=== PATIENT | male | born 1935 | race Caucasian/White ===

== ENCOUNTER → 2016-06-05 | Outpatient (CLI) | payer OTHER ==
[~2016-06-05] MED LIST: AMLO-114 PO; ASPI81TA21 PO; ATEN-173 PO; CHOL2000 PO; DOCU-94 PO; IPRA1AER2 INH; IPRASOL4 INH; LACT10SO17 PO; LCTX PO; POLY335019 PO; SIMV10TA2 PO; SYMIN/8045 INH; WARF3TAB PO; WARF4TAB PO
[2016-06-05 16:02] LABS: BASO % 0.3 %; BASO ABS # 0.02 K/uL (0-0.2); COMPLETE YES; EOS % 2.6 %; HEMATOCRIT 45.4 % (42-52); IG% 0.3 %; LYMPH % 20.4 %; LYMPH ABS # 1.62 K/uL (1.2-3.4); MEAN CELL VOLUME 90.8 fL (80-100); MEAN PLATELET VOLUME 10.7 fL (7.4-10.4); NEUT % 69.4 %; PLATELET COUNT 204 K/uL (130-400); WHITE BLOOD COUNT 7.95 K/uL (4.8-10.8)
[2016-06-05 16:29] LABS: ALT/SGPT 25 U/L (12-78); BLOOD UREA NITROGEN 23 mg/dl (7-18); BUN/CREATININE RATIO 20.6 (10-20); CALCIUM 9.1 mg/dl (8.5-10.1); CARBON DIOXIDE 27 mmol/L (21-32); CHLORIDE 109 mmol/L (98-107); CHOLESTEROL 165 mg/dl (0-200); GLUCOSE 68 mg/dl (70-99); POTASSIUM 4.3 mmol/L (3.5-5.1); SODIUM 144 mmol/L (136-145)
[2016-06-05 16:33] LABS: ALKALINE PHOSPHATASE 81 U/L (45-117); AST/SGOT 26 U/L (15-37); CHOLESTEROL/HDL RATIO 2.8; HDL CHOLESTEROL 60 mg/dl; LDL CHOLESTEROL CALCULATED 81 mg/dl; TRIGLYCERIDES 120 mg/dl (0-150); VERY LOW DENSITY LIPOPROT CALC 24 mg/dl
--- NOTE | 2016-06-09 11:18 | CODING QUERY MEDICAL NECESSITY ---
SUPPORTING DIAGNOSIS NEEDED A supporting diagnosis is required for the test/procedure performed on this patient in order for us to be reimbursed by the patient's insurance. Please provide a supporting diagnosis for the following test/procedure listed below next to the test name along with your signature. *If there is no additional diagnosis for this patient that would support the following test/procedure please document that below next to the test/procedure. Test(s)/Procedure(s) that require a supporting diagnosis: * PSA DIAGNOSIS: * DOS: 06/05/16 Provider Signature: Date: Thank you Tatiana Nguyen [facility] [employer] Once completed, please kindly fax back to [phone] For questions please call [phone]
== END | disposition home or self-care (01) ==
LOC: C.LAB 15:02
PROVIDERS: ATTEND Internal Medicine
DX: K11.20 Sialoadenitis, unspecified (principal); R97.20 Elevated prostate specific antigen [PSA]

== ENCOUNTER → 2017-02-13 | Outpatient (CLI) | payer OTHER ==
[2017-02-13 12:32] LABS: BLOOD UREA NITROGEN 18 mg/dl (7-18); BUN/CREATININE RATIO 14.9 (10-20)
== END | disposition home or self-care (01) ==
LOC: C.LAB 09:51
PROVIDERS: ATTEND Urology
DX: N40.1 Benign prostatic hyperplasia with lower urinary tract symptoms (principal); R97.20 Elevated prostate specific antigen [PSA]

== ENCOUNTER → 2017-07-12 | Outpatient (CLI) | payer OTHER ==
--- NOTE | 2017-07-12 16:06 | DIAGNOSTIC IMAGING REPORT ---
ABDOMEN 2VIEW W/PA CHEST RTN CLINICAL HISTORY: K59.09 Chronic padiloaxfhcoR90.5 Low back pain, [id number] pain COMPARISON STUDY: 02/11/2016 FINDINGS: Moderate emphysematous change. Prior median sternotomy. No focal infiltrate. Abdomen demonstrates a nonobstructive bowel pattern. Mild degenerative change of the hips as well as lumbar spine. No secondary evidence for free air. IMPRESSION: 1. No acute process of the chest and abdomen. 2. Mild emphysematous change. The above report was generated using voice recognition software. It may contain grammatical, syntax or spelling errors. Electronically signed by: Darian Fernandez M.D. 07/12/2017 4:05 PM Dictated Date/Time: 07/12/2017 4:04 PM
== END | disposition home or self-care (01) ==
LOC: C.RADBC 15:29
PROVIDERS: ATTEND Registered Nurse
DX: K59.09 Other constipation (principal); M54.5 Low back pain

== ENCOUNTER → 2017-12-25 | Outpatient (CLI) | payer OTHER ==
[~2017-12-25] MED LIST changes: -AMLO-114 PO; +AMLO10TA3 PO; +ASPI-319 PO; -ASPI81TA21 PO; +IPRA-64 INH; -IPRASOL4 INH; -LACT10SO17 PO; +LACT10SO3 PO; -WARF4TAB PO
--- NOTE | 2017-12-25 11:06 | DIAGNOSTIC IMAGING REPORT ---
CHEST 2 VIEWS ROUTINE CLINICAL HISTORY: J44.9 dyspnea COMPARISON STUDY: 11/23/2017 FINDINGS: Prior median sternotomy. Stable emphysematous change. No focal infiltrate. No significant nodularity. IMPRESSION: Emphysematous and postoperative change. No acute process. The above report was generated using voice recognition software. It may contain grammatical, syntax or spelling errors. Electronically signed by: Darian Fernandez M.D. 12/25/2017 11:05 AM Dictated Date/Time: 12/25/2017 11:04 AM
== END | disposition home or self-care (01) ==
LOC: C.RAD1850 10:56
PROVIDERS: ATTEND Internal Medicine Pulmonary Disease
DX: J44.9 Chronic obstructive pulmonary disease, unspecified (principal)

== ENCOUNTER 2019-08-05 12:15 | Inpatient (IN) ==
[2019-08-05] MEDS ORDERED: ALBUT/IPRATROP 3MG/0.5MG NEB 3 ML VIAL INH STA (12:35)
[2019-08-05] MEDS ORDERED: methylPREDNISolone 125 MG/2 ML VIAL IV STA (12:35)
[2019-08-05] MEDS ORDERED: SODIUM CHLORIDE 0.9% 1000ML 1,000 ML IV SCH (12:45)
[2019-08-05] MEDS: MAGNESIUM SULFATE / D5W 1 GM/100 ML BAG IV SCH ×4 (13:07→21:41)
[2019-08-05 13:24] LABS: Basophils # (auto) 0.01 K/uL (0-0.2); Basophils % (auto) 0.1 %; Eosinophils # (auto) 0.02 K/uL (0-0.5); Eosinophils % (auto) 0.2 %; Hematocrit (blood only) 41.3 % (42-52); Hemoglobin 13.2 g/dL (14.0-18.0); Immature Granulocytes # (auto) 0.03 K/uL (0.00-0.02); Immature Granulocytes % (auto) 0.3 %; Lymphocytes # (auto) 0.47 K/uL (1.2-3.4); Lymphocytes % (auto) 3.9 %; Mean Corpuscular Hemoglobin 29.9 pg (25-34); Mean Corpuscular Volume 93.7 fL (80-100); Mean Platelet Volume 10.8 fL (7.4-10.4); Monocytes # (auto) 0.49 K/uL (0.11-0.59); Monocytes % (auto) 4.1 %; Neutrophils # (auto) 10.94 K/uL (1.4-6.5); Neutrophils % (auto) 91.4 %; Platelet Count 197 K/uL (130-400); RDW Coefficient of Variation 14.8 % (11.5-14.5); RDW Standard Deviation 50.5 fL (36.4-46.3); Red Blood Count 4.41 M/uL (4.7-6.1); White Blood Count 11.96 K/uL (4.8-10.8)
[2019-08-05 13:27] LABS: Base Excess VBG 1.4 mEq/L; Oxygen Saturation VBG 71.6 %; pH VBG 7.39 (7.36-7.41)
[2019-08-05 13:37] LABS: Influenza A virus by PCR Neg for Influ A (Neg); Influenza B virus by PCR Neg for Influ B (Neg)
[2019-08-05 13:38] LABS: INR 3.5 (0.9-1.1); Partial Thromboplastin Ratio 1.5; Partial Thromboplastin Time 42.1 Seconds (21.0-31.0); Prothrombin Time 34.5 Seconds (9.0-12.0)
[2019-08-05 13:41] LABS: Alanine Aminotransferase 21 U/L (12-78); Albumin Level 3.5 gm/dl (3.4-5.0); Aspartate Aminotransferase 23 U/L (15-37); BUN Creatinine Ratio 27.9 (10-20); Blood Urea Nitrogen 36 mg/dl (7-18); Calcium 9.6 mg/dl (8.5-10.1); Carbon Dioxide 27 mmol/L (21-32); Chloride 112 mmol/L (98-107); Creatinine Clr Calc Pharmacy 35.9 ml/min; Est GFR (African American) 58.5; Est GFR (Non-African American) 50.5; Glucose 97 mg/dl (70-99); Magnesium 2.4 mg/dl (1.8-2.4); Potassium 4.5 mmol/L (3.5-5.1); Sodium 143 mmol/L (136-145)
[2019-08-05 13:47] LABS: Alkaline Phosphatase 78 U/L (45-117); Bilirubin,Total 0.4 mg/dl (0.2-1); Globulin 3.6 gm/dl (2.5-4.0); Total Protein 7.1 gm/dl (6.4-8.2); Troponin I < 0.015 ng/ml (0-0.045)
--- NOTE | 2019-08-05 13:54 | XRay Report ---
SINGLE VIEW CHEST CLINICAL HISTORY: Dyspnea. FINDINGS: 2 AP, portable, upright chest radiographs are compared to study dated 06/05/2019. The examina tion is degraded by portable technique and apical lordotic positioning. The patient is status post mi dline sternotomy. The heart is enlarged noting atherosclerotic calcification of the thoracic aorta. T he emphysema and chronic interstitial thickening are similar to previous. No airspace consolidation o r large pleural effusion is identified. No pneumothorax is seen. The skeletal structures are osteopen ic. The bony thorax is grossly intact. IMPRESSION: Cardiomegaly and emphysema with no acute cardiopulmonary abnormality. ACT 112: Negative or not required by law. Electronically signed by: Xiang Becerril M.D. 08/05/2019 1:53 PM
--- NOTE | 2019-08-05 15:33 | Electrocardiogram Report ---
Test Reason : Blood Pressure : / mmHG Vent. Rate : 068 BPM Atrial Rate : 068 BPM P-R Int : 132 ms QRS Dur : 090 ms QT Int : 416 ms P-R-T Axes : 079 073 066 degrees QTc Int : 442 ms Sinus rhythm with frequent Premature ventricular complexes in a pattern of bigeminy Possible Left atrial enlargement Borderline ECG When compared with ECG of 06-MAR-2013 10:23, Premature ventricular complexes are now Present Confirmed by Matthias Regan ([id number]) on 08/05/2019 3:32:41 PM Referred By: Confirmed By:Matthias Regan
[2019-08-05 15:46] LABS: Appearance Urine Cloudy (Clear); Bacteria Urine Automated Negative (Negative); Bilirubin Urine Negative (Negative); Blood Urine Negative (Negative); Color Urine Dark Yellow; Glucose Urine UA Negative (Negative); Ketones Urine Trace (Negative); Leukocyte Esterase Urine Trace (Negative); Nitrite Urine Negative (Negative); Protein Urine 1+ (Negative); RBC Urine Automated 0-4 /hpf (0-4); Specific Gravity Urine 1.027 (1.000-1.030); Urobilinogen Urine Negative (Negative)
[2019-08-05] MEDS ORDERED: SODIUM CHLORIDE 0.9% 1000ML 500 ML IV ONE (16:59)
[2019-08-05] MEDS ORDERED: ALBUT/IPRATROP 3MG/0.5MG NEB 3 ML VIAL NEB ONE (16:59)
--- NOTE | 2019-08-05 17:27 | Emergency Department Note ---
Entered by Umer Hanna acting as a scribe for Jose Nolan MD History of Present Illness General Chief complaint: Shortness of Breath/Dyspnea Stated complaint: breathing diff. Time Seen by Provider: 08/05/19 12:25 Source: patient Limitations: no limitations History of Present Illness Onset (ago): day(s) (couple days) Location: chest Pain Consistency: + constant Quality: + constant Associated symptoms: + denies other symptoms (leg swelling); no loss of appetite The patient is a 83 year-old white male w/ PMHx COPD, chronic anticoagulation, hx of abdominal surgery, hx of laparotomy, who presents to the ED w/ CC of constant SOB beginning a couple days ago. The patient states he has been having a productive cough for the past couple days. he states he wears 2 L oxygen at home at all times. He notes he takes Coumadin and his last INR level was fine. He states his appetite has not been good. He notes his PCP, Dr. Brennan, wanted him to come to the ED. He states he got the flu shot this year. The patient denies having leg swelling. He denies being around others who are sick and using antibiotics. He states he last smoked in 2000. Home Medications Home Medications Medication Instructions Recorded Confirmed Type Lactobacillus acidoph-L.bulgar 1 1 tab PO HS tab 02/11/18 08/05/19 History million cell chewable tablet aspirin 81 mg tablet,delayed 81 mg PO HS tab 02/11/18 08/05/19 History release cholecalciferol (vitamin D3) 50 2,000 units PO HS 02/11/18 08/05/19 History mcg (2,000 unit) capsule polyethylene glycol 3350 17 17 gm PO HS gm 02/11/18 08/05/19 History gram/dose oral powder budesonide-formoterol HFA 160 2 puffs INH BID 03/13/19 08/05/19 History mcg-4.5 mcg/actuation aerosol inhaler amlodipine 10 mg tablet 10 mg PO HS #90 tab 03/17/19 08/05/19 Rx ipratropium 0.5 mg-albuterol 3 mg 3 ml INH DAILY PRN #180 ml 03/28/19 08/05/19 Rx (2.5 mg base)/3 mL nebulization soln ipratropium bromide 0.03 % nasal 2 sprays INTNAS TID PRN #30 ml 04/29/19 08/05/19 Rx spray ipratropium 20 mcg-albuterol 100 2 puffs INH BID gm 06/05/19 08/05/19 History mcg/actuation mist for inhalation docusate sodium 100 mg capsule 100 mg PO PM PRN cap 07/22/19 08/05/19 History warfarin 3 mg tablet See Rx Instructions PO UD #90 tab 07/30/19 08/05/19 Rx atenolol 25 mg PO HS 08/05/19 08/05/19 History benzonatate [Tessalon Perles] 100 mg PO TID PRN 5 Days #15 cap 08/05/19 Rx cephalexin [Keflex] 0 mg PO UD 08/05/19 08/05/19 History escitalopram oxalate 10 mg PO HS 08/05/19 08/05/19 History prednisone 0 mg PO .TAPER DOSE 08/05/19 08/05/19 History simvastatin [Zocor] 10 mg PO HS 08/05/19 08/05/19 History Allergies Allergy/AdvReac Type Severity Reaction Status Date / Time Iodinated Contrast Media Allergy Unknown Verified 08/05/19 13:43 Past Med/Surg History Medical History (Updated 08/05/19 @ 15:56 by Jose Nolan MD) BPH loc w urin obs/LUTS (Chronic) Chronic anticoagulation (Chronic) Constipation (Inactive) COPD (chronic obstructive pulmonary disease) (Inactive) COPD, very severe (Chronic) Hypercoagulable state (Chronic) Pulmonary emphysema Pulmonary emphysema Social phobia (Chronic) Urinary retention (Inactive) Vitamin D insufficiency (Chronic) Surgical History History of abdominal surgery History of cataract surgery bilateral History of laparotomy Family History Mother Cardiomegaly Cardiac disorder Hypertension Father Carotid artery stenosis Coronary heart disease Diabetes Prostate cancer Social History Preferred Language: Macanese Communication Ability: Effective Visual Impairment: Limited Hearing Ability: Normal marital status: Current Living Situation: Spouse current occupational status: retired Feels Safe at Home: Yes Smoking Status: Former smoker Tobacco Type: cigarettes ; Age Started Using Tobacco: 18 ; Age Quit Using Tobacco: 64 ; packs per day: 1 ; Cigarettes Per D ay: 20 ; Hx Alcohol Use: Yes Hx Substance Use: No Childhood Exposure to Second-Hand Smoke: Yes caffeine: Yes Physical Activity Frequency: 3-4 Times per Week Seatbelt Use: always Sunscreen Use: No Review of Systems See HPI for pertinent positives & negatives. and A total of 10 systems reviewed and were otherwise negative Physical Exam Vital Signs Vital Signs - 24 hr 08/05/19 12:23 08/05/19 12:27 08/05/19 12:30 Temperature 36.6 C Temperature Source Oral Pulse Rate 72 80 68 Pulse Rate [Apical] Pulse Rate from SpO2 Sensor Respiratory Rate 25 H 30 H 28 H Respiratory Effort / Characteristics Blood Pressure 113/89 113/69 Blood Pressure Mean 95 83 Pulse Oximetry 97 98 99 Oxygen Delivery Method Oxymask Oxygen Flow Rate 2 Sepsis Recent Fever Within 48 Hours No Sepsis New/Unexplained Change in Mental Status No Sepsis Action Taken by Nursing No Action Required 08/05/19 12:40 08/05/19 12:50 08/05/19 13:00 Temperature Temperature Source Pulse Rate 65 67 69 Pulse Rate [Apical] Pulse Rate from SpO2 Sensor 66 Respiratory Rate 26 H 25 H 28 H Respiratory Effort / Characteristics Blood Pressure Blood Pressure Mean Pulse Oximetry 99 99 98 Oxygen Delivery Method Oxygen Flow Rate Sepsis Recent Fever Within 48 Hours Sepsis New/Unexplained Change in Mental Status Sepsis Action Taken by Nursing 08/05/19 13:10 08/05/19 13:17 08/05/19 13:20 Temperature Temperature Source Pulse Rate 71 64 Pulse Rate [Apical] 70 Pulse Rate from SpO2 Sensor 60 Respiratory Rate 20 21 Respiratory Effort / Characteristics Non-Labored Spontaneous Blood Pressure Blood Pressure Mean Pulse Oximetry 97 97 100 Oxygen Delivery Method Nasal Cannula Oxygen Flow Rate 2 Sepsis Recent Fever Within 48 Hours Sepsis New/Unexplained Change in Mental Status Sepsis Action Taken by Nursing 08/05/19 13:30 08/05/19 13:40 08/05/19 13:50 Temperature Temperature Source Pulse Rate 69 82 72 Pulse Rate [Apical] Pulse Rate from SpO2 Sensor 71 Respiratory Rate 23 Respiratory Effort / Characteristics Blood Pressure Blood Pressure Mean Pulse Oximetry 100 97 98 Oxygen Delivery Method Oxygen Flow Rate Sepsis Recent Fever Within 48 Hours Sepsis New/Unexplained Change in Mental Status Sepsis Action Taken by Nursing 08/05/19 14:00 08/05/19 14:10 08/05/19 14:20 Temperature Temperature Source Pulse Rate 80 80 80 Pulse Rate [Apical] Pulse Rate from SpO2 Sensor Respiratory Rate 23 25 H 24 Respiratory Effort / Characteristics Blood Pressure Blood Pressure Mean Pulse Oximetry 98 97 97 Oxygen Delivery Method Oxygen Flow Rate Sepsis Recent Fever Within 48 Hours Sepsis New/Unexplained Change in Mental Status Sepsis Action Taken by Nursing 08/05/19 14:30 08/05/19 14:40 08/05/19 14:50 Temperature Temperature Source Pulse Rate 80 79 79 Pulse Rate [Apical] Pulse Rate from SpO2 Sensor 40 L 40 L 40 L Respiratory Rate 28 H 25 H 24 Respiratory Effort / Characteristics Blood Pressure Blood Pressure Mean Pulse Oximetry 98 98 98 Oxygen Delivery Method Oxygen Flow Rate Sepsis Recent Fever Within 48 Hours Sepsis New/Unexplained Change in Mental Status Sepsis Action Taken by Nursing 08/05/19 15:00 08/05/19 15:10 08/05/19 15:23 Temperature Temperature Source Pulse Rate 79 78 88 Pulse Rate [Apical] Pulse Rate from SpO2 Sensor 39 L 43 L Respiratory Rate 19 21 11 L Respiratory Effort / Characteristics Blood Pressure Blood Pressure Mean Pulse Oximetry 99 93 Oxygen Delivery Method Oxygen Flow Rate Sepsis Recent Fever Within 48 Hours Sepsis New/Unexplained Change in Mental Status Sepsis Action Taken by Nursing 08/05/19 15:30 08/05/19 15:40 08/05/19 15:50 Temperature Temperature Source Pulse Rate 83 80 87 Pulse Rate [Apical] Pulse Rate from SpO2 Sensor 41 L 40 L 44 L Respiratory Rate 23 21 26 H Respiratory Effort / Characteristics Blood Pressure Blood Pressure Mean Pulse Oximetry 99 98 98 Oxygen Delivery Method Oxygen Flow Rate Sepsis Recent Fever Within 48 Hours Sepsis New/Unexplained Change in Mental Status Sepsis Action Taken by Nursing 08/05/19 16:00 Temperature Temperature Source Pulse Rate 79 Pulse Rate [Apical] Pulse Rate from SpO2 Sensor 40 L Respiratory Rate 25 H Respiratory Effort / Characteristics Blood Pressure Blood Pressure Mean Pulse Oximetry 99 Oxygen Delivery Method Oxygen Flow Rate Sepsis Recent Fever Within 48 Hours Sepsis New/Unexplained Change in Mental Status Sepsis Action Taken by Nursing GENERAL: Well nourished, non-toxic. Mild distress. Nasal cannula in place. EYE EXAM: Normal conjunctiva. PERRL, no anisocoria and EOM's grossly intact w/o pain. OROPHARYNX: Dry mucus membranes. Grossly normal dentition. NECK: Supple, no nuchal rigidity, no adenopathy, non-tender. no signs of meningismus. LUNGS: Diminished breath sounds bilateral bases. Prolonged expiratory phase. HEART: NSR, no MRG. CHEST: Well-healed midline sternotomy scar. ABDOMEN: Abdomen soft, non-tender, normo-active bowel sounds, no masses, no rebound or guarding. BACK: No CVA TTP. SKIN: No rashes and no bruising. UPPER EXTREMITIES: Upper extremities are grossly normal. LOWER EXTREMITIES: No pitting edema. No calf pain. Negative Paige's sign. NEURO EXAM: A&O x3, cranial nerves II-XII grossly intact, normal speech, moves all 4 extremities on command w/o issue. Course Course 1228: The patient was evaluated in room C7, and a complete history and physical examination were performed. 1417: I reevaluated the patient. Breathing sounds improved. The patient is still getting fluids. 1654: The patient did an ambulatory trial and got short of breath. He states he still has pain. 1707: I discussed the patient's case with Dr. Robert Gordon spitalist. She will evaluate the patient for further management. Administered Medications Discontinued Medications Albuterol (Duoneb) 6 ml INH NOW STA Stop: 08/05/19 12:36 Last Admin: 08/05/19 13:15 Dose: 6 ml Documented by: [id number] Sodium Chloride (Nss 1000ml) 1,000 mls @ 999 mls/hr IV .Q1H1M JAIME Stop: 08/05/19 13:45 Last Infusion: 08/05/19 14:26 Dose: 0 mls/hr Documented by: [id number] Admin: 08/05/19 13:07 Dose: 999 mls/hr Documented by: [id number] Magnesium Sulfate/Dextrose (Magnesium Sulfate / D5w) 1 gm in 100 mls @ 100 mls/hr IV Q1H JAIME Stop: 08/05/19 14:44 Last Admin: 08/05/19 14:17 Dose: 100 mls/hr Documented by: [id number] Infusion: 08/05/19 14:07 Dose: 100 mls/hr Documented by: [id number] Admin: 08/05/19 13:07 Dose: 100 mls/hr Documented by: [id number] Methylprednisolone (Solumedrol) 60 mg IV NOW STA Stop: 08/05/19 12:36 Last Admin: 08/05/19 13:07 Dose: 60 mg Documented by: [id number] Medical Decision Making Differential Diagnosis Differential diagnoses includes but is not limited to pneumonia, bronchitis, COPD/Asthma exacerbation, pneumothorax, pulmonary embolism, congestive heart failure, acute coronary syndrome Medical Records Attestation: I reviewed the patient's medical records. Home Medications Current Medication List: was personally reviewed by me Laboratory Data Attestation: I reviewed the patient's lab results. Result diagrams: 08/05/19 13:13 08/05/19 13:13 Lab Results 08/05/19 08/05/19 08/05/19 Range/Units 12:55 13:13 13:13 WBC (4.8-10.8) K/uL RBC (4.7-6.1) M/uL Hgb (14.0-18.0) g/dL Hct (42-52) % MCV (80-100) fL MCH (25-34) pg MCHC (32-36) g/dL RDW Std Deviation (36.4-46.3) fL RDW Coeff of Gauri (11.5-14.5) % Plt Count (130-400) K/uL MPV (7.4-10.4) fL Immature Gran % (Auto) % Neut % (Auto) % Lymph % (Auto) % [place] % (Auto) % Eos % (Auto) % Baso % (Auto) % Immature Gran # (Auto) (0.00-0.02) K/uL Neut # (Auto) (1.4-6.5) K/uL Lymph # (Auto) (1.2-3.4) K/uL [place] # (Auto) (0.11-0.59) K/uL Eos # (Auto) (0-0.5) K/uL Baso # (Auto) (0-0.2) K/uL PT (9.0-12.0) Seconds INR (0.9-1.1) APTT (21.0-31.0) Seconds PTT Ratio VBG pH 7.39 (7.36-7.41) VBG pCO2 46 (38-50) mmHg VBG pO2 40 mmHg VBG HCO3 27 mmol/L VBG O2 Saturation 71.6 % VBG Base Excess 1.4 mEq/L Barometric Pressure 731.0 mm/Hg Sodium 143 (136-145) mmol/L Potassium 4.5 (3.5-5.1) mmol/L Chloride 112 H (98-107) mmol/L Carbon Dioxide 27 (21-32) mmol/L Anion Gap 4.0 (3-11) BUN 36 H (7-18) mg/dl Creatinine 1.30 (0.6-1.4) mg/dl Est Cr Clr Drug Dosing 35.9 ml/min Est GFR ( Amer) 58.5 Est GFR (Non-Af Amer) 50.5 BUN/Creatinine Ratio 27.9 H (10-20) Glucose 97 (70-99) mg/dl Calcium 9.6 (8.5-10.1) mg/dl Magnesium 2.4 (1.8-2.4) mg/dl Total Bilirubin 0.4 (0.2-1) mg/dl AST 23 (15-37) U/L ALT 21 (12-78) U/L Alkaline Phosphatase 78 (45-117) U/L Troponin I < 0.015 (0-0.045) ng/ml Total Protein 7.1 (6.4-8.2) gm/dl Albumin 3.5 (3.4-5.0) gm/dl Globulin 3.6 (2.5-4.0) gm/dl Albumin/Globulin Ratio 1.0 (0.9-2) Urine Color Urine Appearance (Clear) Urine pH (4.5-7.5) Ur Specific [place] (1.000-1.030) Urine Protein (Negative) Urine Glucose (UA) (Negative) Urine Ketones (Negative) Urine Blood (Negative) Urine Nitrite (Negative) Urine Bilirubin (Negative) Urine Urobilinogen (Negative) Ur Leukocyte Esterase (Negative) Urine WBC (Auto) (0-5) /hpf Urine RBC (Auto) (0-4) /hpf U Hyaline Cast (Auto) (0-5) /lpf U Epithel Cells (Auto) (0-5) /lpf Urine Bacteria (Auto) (Negative) Influenza Type A (PCR) Neg for Influ A (Neg) Influenza Type B (PCR) Neg for Influ B (Neg) 08/05/19 08/05/19 08/05/19 Range/Units 13:13 13:13 15:04 WBC 11.96 H (4.8-10.8) K/uL RBC 4.41 L (4.7-6.1) M/uL Hgb 13.2 L (14.0-18.0) g/dL Hct 41.3 L (42-52) % MCV 93.7 (80-100) fL MCH 29.9 (25-34) pg MCHC 32.0 (32-36) g/dL RDW Std Deviation 50.5 H (36.4-46.3) fL RDW Coeff of Gauri 14.8 H (11.5-14.5) % Plt Count 197 (130-400) K/uL MPV 10.8 H (7.4-10.4) fL Immature Gran % (Auto) 0.3 % Neut % (Auto) 91.4 % Lymph % (Auto) 3.9 % [place] % (Auto) 4.1 % Eos % (Auto) 0.2 % Baso % (Auto) 0.1 % Immature Gran # (Auto) 0.03 H (0.00-0.02) K/uL Neut # (Auto) 10.94 H (1.4-6.5) K/uL Lymph # (Auto) 0.47 L (1.2-3.4) K/uL [place] # (Auto) 0.49 (0.11-0.59) K/uL Eos # (Auto) 0.02 (0-0.5) K/uL Baso # (Auto) 0.01 (0-0.2) K/uL PT 34.5 H (9.0-12.0) Seconds INR 3.5 H (0.9-1.1) APTT 42.1 H (21.0-31.0) Seconds PTT Ratio 1.5 VBG pH (7.36-7.41) VBG pCO2 (38-50) mmHg VBG pO2 mmHg VBG HCO3 mmol/L VBG O2 Saturation % VBG Base Excess mEq/L Barometric Pressure mm/Hg Sodium (136-145) mmol/L Potassium (3.5-5.1) mmol/L Chloride (98-107) mmol/L Carbon Dioxide (21-32) mmol/L Anion Gap (3-11) BUN (7-18) mg/dl Creatinine (0.6-1.4) mg/dl Est Cr Clr Drug Dosing ml/min Est GFR ( Amer) Est GFR (Non-Af Amer) BUN/Creatinine Ratio (10-20) Glucose (70-99) mg/dl Calcium (8.5-10.1) mg/dl Magnesium (1.8-2.4) mg/dl Total Bilirubin (0.2-1) mg/dl AST (15-37) U/L ALT (12-78) U/L Alkaline Phosphatase (45-117) U/L Troponin I (0-0.045) ng/ml Total Protein (6.4-8.2) gm/dl Albumin (3.4-5.0) gm/dl Globulin (2.5-4.0) gm/dl Albumin/Globulin Ratio (0.9-2) Urine Color Dark Yellow Urine Appearance Cloudy A (Clear) Urine pH 5.0 (4.5-7.5) Ur Specific [place] 1.027 (1.000-1.030) Urine Protein 1+ H (Negative) Urine Glucose (UA) Negative (Negative) Urine Ketones Trace H (Negative) Urine Blood Negative (Negative) Urine Nitrite Negative (Negative) Urine Bilirubin Negative (Negative) Urine Urobilinogen Negative (Negative) Ur Leukocyte Esterase Trace H (Negative) Urine WBC (Auto) 5-10 H (0-5) /hpf Urine RBC (Auto) 0-4 (0-4) /hpf U Hyaline Cast (Auto) 1-5 (0-5) /lpf U Epithel Cells (Auto) 10-20 H (0-5) /lpf Urine Bacteria (Auto) Negative (Negative) Influenza Type A (PCR) (Neg) Influenza Type B (PCR) (Neg) Imaging Data Radiologist's Impression: Radiology results as stated below per my review and the radiologist's interpretation: SINGLE VIEW CHEST CLINICAL HISTORY: Dyspnea. FINDINGS: 2 AP, portable, upright chest radiographs are compared to study dated 06/05/2019. The examination is degraded by portable technique and apical lordotic positioning. The patient is status post midline sternotomy. The heart is enlarged noting atherosclerotic calcification of the thoracic aorta. The emphysema and chronic interstitial thickening are similar to previous. No airspace consolidation or large pleural effusion is identified. No pneumothorax is seen. The skeletal structures are osteopenic. The bony thorax is grossly intact. IMPRESSION: Cardiomegaly and emphysema with no acute cardiopulmonary abnormality. ACT 112: Negative or not required by law. Electronically signed by: Xiang Becerril M.D. 08/05/2019 1:53 PM ECG Data Attestation: I personally reviewed and interpreted this ECG as follows: Indication: + SOB/dyspnea Rate (beats per minute): 68 ECG Intervals/blocks: + Normal QRS, + Normal QT, + Normal NV and + Normal QT-c ECG ST segments: no ST depression and no ST elevation ECG Findings: + PVCs (frequent in bigeminal patten) Blood Pressure Blood Pressure Findings: Normal blood pressure Blood Pressure Disposition: further management by hospitalist MDM Narrative The patient is a 83 year-old white male w/ PMHx COPD, chronic anticoagulation, hx of abdominal surgery, hx of laparotomy, who presents to the ED w/ CC of constant SOB beginning a couple days ago. Continuous Cardiac Monitoring: An order was placed for continuous cardiac monitoring. The monitor shows a rate of 67 with a sinus rhythm Patient was seen and evaluated the bedside. The patient has been having progressive worsening shortness of breath and dyspnea. Patient does have dyspnea on exertion. No lower extremity swelling and no orthopnea. The patient states it does feel somewhat similar to his COPD but much worse. Patient has h ad productive cough but is unsure as to whether discolored or clear. Patient is currently non-smoker last smoked in 2000. The patient does not complain of chest pains. The patient is on 2 L nasal cannula at all times. Patient does have diminished breath sounds at bilateral bases with a prolonged expiratory phase. Patient did a bladder completed and was given DuoNeb steroids and magnesium and fluids. EKG chest x-ray also were obtained. Patient does have a mild white count of almost 12,000. Patient has virtually normal H&H. Patient is slightly supratherapeutic as the INR 3.5. Blood gas appears unremarkable. Patient does have some prerenal azotemia and did receive IV fluids along with his nebulizer treatments. Troponin is not detectable. Urinalysis does not show any obvious infection but may be dry given the trace ketones. On reassessment the patient was feeling improved. Breath sounds appear to be improved. Patient was trialed during an ambulatory trial but did not do very well as the patient became dyspneic more short of breath and did not feel that he would be suitable for home. I believe this is reasonable given that the patient was then in mild distress on arrival and is not having improvement enough in symptoms to perform his ADLs at home. I did order additio nal duo nebs and magnesium. Patient was admitted to the medicine service. Impression & Plan COPD exacerbation, SOB (shortness of breath) Discharge Plan Visit Data Chief Complaint: Shortness of Breath/Dyspnea Stated Complaint: breathing diff. ED Provider: Jose Nolan Discharge Problem: COPD exacerbation, SOB (shortness of breath) Patient Disposition: Being Evaluated by Hospitalist Condition: Good Discharge Instructions Krames/Other Patient Handouts: Coughing Techniques, Nebulizer Steps Activity Restrictions/Additional Instructions: Please return to the emergency department if you have worsening or recurrent symptoms not amenable to at-home treatment. Please call for a follow-up appointment with her primary care physician. Please take your medications as prescribed. If you have other concerns and/or complaints please feel free to also call your primary care physician's office or return the ED for further evaluation, management, and treatment. Take your medications as prescribed. If taking an antibiotic consider taking a probiotic and/or eating yogurt, but at the least, please take with food as it can cause upset stomach. Please use the nebulizer every 4 hours the first day, then every 6 hours second day. You may then use as needed. Please consider using your incentive spirometer up to 6 times daily. Your INR or Coumadin level was 3.5. Please ensure that you do continue your checks. You have been examined and treated today on an emergency basis only. This is not a substitute for, or an effort to provide, complete comprehensive medical care. It is impossible to recognize and treat all injuries or illnesses in a single emergency department visit. It is therefore important that you follow up closely with [facility], your PCP, and/or your specialist(s). Call as s oon as possible for an appointment. Thank you for your time and consideration. I look forward to speaking with you again soon. Please don't hesitate to call us if you have any questions. Interventions: ED Discharge Assessment Last Done: 08/05/19 16:57 Forms Stand Alone Forms: My [facility], Important Visit Information Prescriptions Prescriptions: New benzonatate [Tessalon Perles] 100 mg capsule 100 mg PO TID PRN (Reason: cough) 5 Days Qty: 15 RF: 0 No Action aspirin [Ecotrin Low Strength] 81 mg tablet,delayed release (DR/EC) 81 mg PO HS RF: 0 cholecalciferol (vitamin D3) 2,000 unit capsule 2,000 units PO HS RF: 0 Lactobacillus acidoph-L.bulgar [Lactinex] 1 million cell tablet,chewable 1 tab PO HS RF: 0 polyethylene glycol 3350 [Miralax] 17 gram/dose powder 17 gm PO HS RF: 0 Combivent Respimat 20-100 mcg/actuation mist 2 puffs INH BID RF: 0 docusate sodium [Colace] 100 mg capsule 100 mg PO PM PRN (Reason: Constipation) RF: 0 amlodipine [Norvasc] 10 mg tablet 10 mg PO HS Qty: 90 RF: 1 ipratropium-albuterol 0.5 mg-3 mg(2.5 mg base)/3 mL solution for nebulization 3 ml INH DAILY PRN (Reason: shortness of breath) Qty: 180 RF: 3 warfarin 3 mg tablet See Rx Instructions PO UD Qty: 90 RF: 3 Symbicort 160-4.5 mcg/actuation HFA aerosol inhaler 2 puffs INH BID RF: 0 ipratropium bromide 0.03 % spray,non-aerosol 2 sprays INTNAS TID PRN (Reason: runny nose) Qty: 30 RF: 5 prednisone 10 mg Tablets,Dose Pack 0 mg PO .TAPER DOSE RF: 0 cephalexin [Keflex] 500 mg Capsule 0 mg PO UD RF: 0 simvastatin [Zocor] 10 mg tablet 10 mg PO HS RF: 0 atenolol 25 mg tablet 25 mg PO HS RF: 0 escitalopram oxalate 10 mg tablet 10 mg PO HS RF: 0 Referrals Referrals: Derrick Charles MD [Primary Care Provider] - The scribe's documentation has been prepared under my direction and personally reviewed by me in its entirety. I confirm that the note above accurately reflects all work, treatment, procedures, and medical decision making performed by me.
[2019-08-05] MEDS ORDERED: ALUMINUM/MAGNESIUM SUSP 30 ML UDC PO PRN (18:55)
[2019-08-05] MEDS ORDERED: GUAIFENESIN/DEXTROM SYRUP 200MG/20MG 10ML UDC PO PRN (18:55)
[2019-08-05] MEDS ORDERED: MAGNESIUM HYDROXIDE SUSP 30 ML UDC PO PRN (18:55)
[2019-08-05] MEDS ORDERED: NON-FORMULARY MEDICATION (Ipratropium Bromide 2 SPRAYS) INTNAS PRN (18:55)
[2019-08-05] MEDS ORDERED: DOCUSATE SODIUM 100 MG CAP PO PRN (18:55)
[2019-08-05] MEDS ORDERED: ALBUT/IPRATROP 3MG/0.5MG NEB 3 ML VIAL INH PRN (18:55)
[2019-08-05] MEDS ORDERED: ONDANSETRON INJ 2 MG/ML 2 ML VIAL IV PRN (18:55)
[2019-08-05] MEDS ORDERED: ACETAMINOPHEN 325 MG TAB PO PRN (18:55)
[2019-08-05] MEDS ORDERED: POLYETHYLENE (MIRALAX) 17 GM PACK PO PRN (18:55)
[2019-08-05] MEDS ORDERED: methylPREDNISolone 40 MG in SYRINGE 0 ML IV ONE (19:15)
[2019-08-05] MEDS: ALBUT/IPRATROP 3MG/0.5MG NEB 3 ML VIAL NEB SCH ×2 (19:59→23:26)
[2019-08-05] MEDS: LACTOBACILLUS ACIDOPHILUS (FLORANEX) TAB PO SCH (20:25)
[2019-08-05] MEDS: CHOLECALCIFEROL 1,000 UNITS 25 MCG TAB PO SCH (20:25)
[2019-08-05] MEDS: AMLODIPINE BESYLATE 5 MG TAB PO SCH (20:25)
[2019-08-05] MEDS: ESCITALOPRAM OXALATE 10 MG TAB PO SCH (20:25)
[2019-08-05] MEDS: ASPIRIN 81 MG ECTAB PO SCH (20:26)
[2019-08-05] MEDS: DOXYCYCLINE HYCLATE 100 MG in DEXTROSE 5% 100 ML IV SCH (20:26)
[2019-08-05] MEDS: SIMVASTATIN 10 MG TAB PO SCH (20:26)
[2019-08-05] MEDS: cefTRIAXone SODIUM 2,000 MG in DEXTROSE 5% 50 ML IV SCH (20:26)
[2019-08-05] MEDS: POLYETHYLENE (MIRALAX) 17 GM PACK PO SCH (20:26)
[2019-08-05] MEDS: IPRATROPIUM BROMIDE/ALBUTEROL respimat INH INH SCH (20:27)
[2019-08-05] MEDS ORDERED: ATENOLOL 25 MG TABLET PO SCH (21:00)
--- NOTE | 2019-08-05 22:11 | History & Physical Report ---
Date of Service August 05, 2019 Assessment & Plan (1) COPD exacerbation: Admit to PCU on telemetry for observation of COPD exacerbation versus pneumonia, Monitor vital signs every 4 hours, Replenish electrolytes, Continue home inhalers, Started duo nebs every 4 hours scheduled and PRN per RT, Started ceftriaxone 2 g IV every 24 hours and doxycycline 100 mg IV twice daily empirically for possible pneumonia. Ceftriaxone would also cover for presumptive urinary tract infection while urine culture is pending. Sohail was seen 10 mg p.o. every 6 hours as needed, continue fluticasone/vilante 1 puff inhalation daily, DVT prophylaxis: INR is supratherapeutic at 3.5. Hold warfarin and restart when INR is 2.5. Recheck INR daily Present on Admission?: Yes (2) Pulmonary emphysema: As discussed above Present on Admission?: Yes (3) Depression: Table, continue escitalopram 10 mg p.o. nightly Present on Admission?: Yes (4) Hypercoagulable state: Patient is on warfarin but now at supratherapeutic state. INR is 3.5. Hold warfarin for day or 2 and restart when INR is 2.5 to keep INR between 2 and 3. Present on Admission?: Yes (5) Hypertension: Stable, continue home medicine amlodipine 10 mg p.o. nightly, aspirin 81 mg p.o. nightly, atenolol 25 mg p.o. nightly. Monitor blood pressure every 4 hours. Present on Admission?: Yes (6) Volume overload: Patient lung sounds wet with some crackles present there. BNP is elevated to 3460, TTE pending, Strict in and out, Daily weight, Low-sodium diet, Lasix 40 mg IV daily and titrate up as needed. Present on Admission?: Yes (7) Constipation, acute: Continue home medicine docusate sodium 100 mg p.o. every afternoon as needed, Lactobacillus acidophilus 1 tablet p.o. nightly, MiraLAX 17 g p.o. nightly Present on Admission?: Yes History of Present Illness Chief Complaint: Shortness of breath Primary Care Provider: Derrick Charles MD The patient is an 83 years old white male with past medical history of CABG, coronary artery disease, COPD, BPH LUTS, hypercoagulable state on warfarin, constipation, depression, hypertension, who presents to the emergency room with a shortness of breath for several days. The patient stated he has been having a productive cough for the past couple of days. Patient states he wears 2 L of oxygen at home at all times. He reports taking Coumadin and his last INR was within the normal limits between 2 and 3. Patient reports that his appetite is poor. Patient's PCP Dr. Crawford send the patient to the emergency room. Patient reports that he had a flu shot this year. Patient denies fever, chills, chest pain, abdominal pain, frequency, urgency, syncope or near syncope. Patient denies sick contact or recent travel. Patient was smoker in the past and quit smoking in 2000. Labs are reviewed which shows WBCs of 11.96, hemoglobin 13.2, hematocrit 41.3, platelets 197, PT 34.5, INR 3.5, APTT 42.1, VBG 7.39, PCO2 46, PO2 40, VBG HCO3 27, sodium 143, potassium 4.5, chloride 112, carbon dioxide 27, anion gap 4, BUN 36, creatinine 1.3, GFR 50.5, BUN/creatinine 27.9, glucose 97, calcium 9.6, magnesium 2.4, total bilirubin 0.4, AST 23, ALT 21, alkaline phosphatase 78, troponin 0.015, BNP 3460, protein 7.1, albumin 3.5, globulin 3.6. Urine cloudy, 1+ protein, Trace, Negative Nitrates, Negative Blood, Trace Leukocyte Estrace, WBCs 5-10, Epithelial Cells 10-20, influenza A is negative, influenza B is negative. Chest x-ray shows cardiomegaly and emphysema with no acute cardiopulmonary abnormalities. No airspace consolidation or large pleural effusion is identified. No pneumothorax seen. Patient is status post midline sternotomy. Decision was made to admit patient to PCU on telemetry for observation for COPD exacerbation and to rule out possible pneumonia. Allergies Allergy/AdvReac Type Severity Reaction Status Date / Time Iodinated Contrast Media Allergy Unknown Verified 08/05/19 13:43 Home Medications Home Medications Medication Instructions Recorded Confirmed Type Lactobacillus acidoph-L.bulgar 1 1 tab PO HS tab 02/11/18 08/05/19 History million cell chewable tablet aspirin 81 mg tablet,delayed 81 mg PO HS tab 02/11/18 08/05/19 History release cholecalciferol (vitamin D3) 50 2,000 units PO HS 02/11/18 08/05/19 History mcg (2,000 unit) capsule polyethylene glycol 3350 17 17 gm PO HS gm 02/11/18 08/05/19 History gram/dose oral powder budesonide-formoterol HFA 160 2 puffs INH BID 03/13/19 08/05/19 History mcg-4.5 mcg/actuation aerosol inhaler amlodipine 10 mg tablet 10 mg PO HS #90 tab 03/17/19 08/05/19 Rx ipratropium 0.5 mg-albuterol 3 mg 3 ml INH DAILY PRN #180 ml 03/28/19 08/05/19 Rx (2.5 mg base)/3 mL nebulization soln ipratropium bromide 0.03 % nasal 2 sprays INTNAS TID PRN #30 ml 04/29/19 08/05/19 Rx spray ipratropium 20 mcg-albuterol 100 2 puffs INH BID gm 06/05/19 08/05/19 History mcg/actuation mist for inhalation docusate sodium 100 mg capsule 100 mg PO PM PRN cap 07/22/19 08/05/19 History warfarin 3 mg tablet See Rx Instructions PO UD #90 tab 07/30/19 08/05/19 Rx atenolol 25 mg PO HS 08/05/19 08/05/19 History benzonatate [Tessalon Perles] 100 mg PO TID PRN 5 Days #15 cap 08/05/19 Rx cephalexin [Keflex] 0 mg PO UD 08/05/19 08/05/19 History escitalopram oxalate 10 mg PO HS 08/05/19 08/05/19 History prednisone 0 mg PO .TAPER DOSE 08/05/19 08/05/19 History simvastatin [Zocor] 10 mg PO HS 08/05/19 08/05/19 History Past Med/Surg History Medical History BPH loc w urin obs/LUTS (Chronic) Chronic anticoagulation (Chronic) Constipation (Inactive) COPD (chronic obstructive pulmonary disease) (Inactive) COPD, very severe (Chronic) Hypercoagulable state (Chronic) Pulmonary emphysema Pulmonary emphysema Social phobia (Chronic) Urinary retention (Inactive) Vitamin D insufficiency (Chronic) Surgical History History of abdominal surgery History of cataract surgery bilateral History of laparotomy Family History Mother Cardiomegaly Cardiac disorder Hypertension Father Carotid artery stenosis Coronary heart disease Diabetes Prostate cancer Social History Preferred Language: Irish Communication Ability: Effective Visual Impairment: Limited Hearing Ability: Normal Color Expert Required: No Beliefs That Will Affect Care: None marital status: Current Living Situation: Spouse current occupational status: retired Feels Safe at Home: Yes Smoking Status: Former smoker Tobacco Type: cigarettes ; Age Started Using Tobacco: 18 ; Age Quit Using Tobacco: 64 ; packs per day: 1 ; Cigarettes Per Day: 20 ; Hx Alcohol Use: Yes Alcohol type: beer Hx Substance Use: No Childhood Exposure to Second-Hand Smoke: Yes caffeine: Yes Physical Activity Frequency: 3-4 Times per Week Seatbelt Use: always Sunscreen Use: No Review of Systems Review of Systems: All systems reviewed & are unremarkable except as noted in HPI & below Physical Exam Constitutional: WD/WN, vitals as above well developed, + ill appearing and + cachectic Eyes: PERRL, conjunctivae normal, anicteric sclerae ENMT: external ear and nose normal, oropharynx normal Neck: trachea midline, no thyromegaly Respiratory: + respiratory distress, + labored breathing, + uses accessory muscles, + hyperresonance to percussion and + prolonged expiratory phase Auscultation: + crackles and + wheezes Cardiovascular: Heart Sounds: normal S1, normal S2 and + murmur Palpation: + palpable S3 Vessels: dorsalis pedis pulses present Gastrointestinal (Abdomen): normal bowel sounds, soft, nontender, no hepatosp lenomegaly Musculoskeletal: no cyanosis or clubbing, extremities motor strength 5/5 Skin: no rashes, warm and dry Neurologic: patellar DTR's 2+ bilat, sensation intact Psychiatric: A+Ox3, euthymic affect Lymphatic: no cervical or axillary lymphadenopathy Results & Data Vital Signs (Past 12 Hours) Vital Signs Temp Pulse Pulse Resp BP BP Pulse Ox 08/05/19 20:03 62 24 99 08/05/19 20:00 102 H 08/05/19 19:47 102 H 08/05/19 19:09 36.8 C 50 L 26 H 135/55 L 99 08/05/19 18:55 36.8 C 50 L 26 H 135/55 L 99 08/05/19 18:09 90 20 116/52 L 100 08/05/19 17:40 82 129/53 L 100 08/05/19 17:31 48 L 22 91 08/05/19 17:30 92 08/05/19 16:10 86 19 08/05/19 16:00 79 25 H 99 08/05/19 15:50 87 26 H 98 08/05/19 15:40 80 21 98 08/05/19 15:30 83 23 99 08/05/19 15:23 88 11 L 93 08/05/19 15:10 78 21 99 08/05/19 15:00 79 19 08/05/19 14:50 79 24 98 08/05/19 14:40 79 25 H 98 08/05/19 14:30 80 28 H 98 08/05/19 14:20 80 24 97 08/05/19 14:10 80 25 H 97 08/05/19 14:00 80 23 98 08/05/19 13:50 72 23 98 08/05/19 13:40 82 97 08/05/19 13:30 69 100 08/05/19 13:20 64 21 100 08/05/19 13:17 70 20 97 08/05/19 13:10 71 97 08/05/19 13:00 69 28 H 98 08/05/19 12:50 67 25 H 99 08/05/19 12:40 65 26 H 99 08/05/19 12:30 36.6 C 68 28 H 113/69 99 08/05/19 12:27 80 30 H 98 08/05/19 12:23 72 25 H 113/89 97 Pulse Ox 08/05/19 20:03 08/05/19 20:00 08/05/19 19:47 08/05/19 19:09 08/05/19 18:55 99 08/05/19 18:09 08/05/19 17:40 08/05/19 17:31 08/05/19 17:30 08/05/19 16:10 08/05/19 16:00 08/05/19 15:50 08/05/19 15:40 03/10/20 15:30 08/05/19 15:23 08/05/19 15:10 08/05/19 15:00 08/05/19 14:50 08/05/19 14:40 08/05/19 14:30 08/05/19 14:20 08/05/19 14:10 08/05/19 14:00 08/05/19 13:50 08/05/19 13:40 08/05/19 13:30 08/05/19 13:20 08/05/19 13:17 08/05/19 13:10 08/05/19 13:00 08/05/19 12:50 08/05/19 12:40 08/05/19 12:30 08/05/19 12:27 08/05/19 12:23 Code Status & VTE Plan Code Status Full code VTE Prophylaxis Plan VTE Prophylaxis will be ordered: Yes PG Care Time/CCT Total # of Minutes Spent Total Time Spent with Patient: Total time spent is greater than 50% in coordin ation of care (as documented) at patient's floor/unit and/or counseling patient: Coding Level of Care Code 36899 Initial Inpt Care Lvl 3 Diagnoses COPD exacerbation J44.1 Pulmonary emphysema J43.9 Depression F32.9 Hypercoagulable state D68.59 Hypertension I10 Volume overload E87.70 Constipation, acute K59.00
[2019-08-06] MEDS: ALBUT/IPRATROP 3MG/0.5MG NEB 3 ML VIAL NEB SCH ×3 (03:17→11:55)
[2019-08-06 06:56] LABS: Hematocrit (blood only) 39.2 % (42-52); Hemoglobin 12.3 g/dL (14.0-18.0); Immature Granulocytes # (auto) 0.02 K/uL (0.00-0.02); Immature Granulocytes % (auto) 0.2 %; Lymphocytes # (auto) 0.38 K/uL (1.2-3.4); Lymphocytes % (auto) 4.4 %; Mean Corpuscular Hemoglobin 29.4 pg (25-34); Mean Corpuscular Hgb Conc 31.4 g/dL (32-36); Mean Corpuscular Volume 93.8 fL (80-100); Mean Platelet Volume 10.6 fL (7.4-10.4); Monocytes # (auto) 0.29 K/uL (0.11-0.59); Monocytes % (auto) 3.4 %; Platelet Count 180 K/uL (130-400); RDW Standard Deviation 51.2 fL (36.4-46.3); Red Blood Count 4.18 M/uL (4.7-6.1); White Blood Count 8.59 K/uL (4.8-10.8)
[2019-08-06 07:12] LABS: Prothrombin Time 42.5 Seconds (9.0-12.0)
[2019-08-06 07:16] LABS: INR 4.4 (0.9-1.1)
[2019-08-06 07:29] LABS: Albumin Level 3.1 gm/dl (3.4-5.0); BUN Creatinine Ratio 26.7 (10-20); Calcium 8.7 mg/dl (8.5-10.1); Creatinine Clr Calc Pharmacy 37.7 ml/min; Est GFR (Non-African American) 50.9; Potassium 4.1 mmol/L (3.5-5.1)
[2019-08-06 07:31] LABS: Bilirubin,Total 0.3 mg/dl (0.2-1); Globulin 3.1 gm/dl (2.5-4.0); Total Protein 6.2 gm/dl (6.4-8.2)
[2019-08-06] MEDS: FLUTICASONE/VILANTEROL 100/25MCG 14 PUFFS/INHALER INH SCH (07:32)
[2019-08-06] MEDS: IPRATROPIUM BROMIDE/ALBUTEROL respimat INH INH SCH ×2 (07:33→20:55)
[2019-08-06] MEDS: methylPREDNISolone 40 MG in SYRINGE 0 ML IV SCH (07:34)
[2019-08-06] MEDS: FUROSEMIDE 40 MG in SYRINGE 0 ML IV SCH (07:34)
[2019-08-06] MEDS: DOXYCYCLINE HYCLATE 100 MG in DEXTROSE 5% 100 ML IV SCH ×2 (08:57→20:56)
--- NOTE | 2019-08-06 12:31 | XCELERA ---
[id number] \\[id number]
--- NOTE | 2019-08-06 14:58 | Cardiology Consultation ---
Date of Consultation August 06, 2019 Assessment & Plan (1) Coronary artery disease: He has known coronary disease and has had bypass surgery in the past. He does not describe angina and is limited by his shortness of breath which is probably lung disease not an anginal equivalent. I would not investigate further. (2) SOB (shortness of breath): He has shortness of breath and quite significant lung disease, he does have exertional shortness of breath but I do not think this is an anginal equivalent. (3) Chronic anticoagulation: He is on anticoagulation for a history of DVT. He is on warfarin, he pro bably could use 1 of the newer agents which would be easier for him to take but I have not made that change. (4) Ventricular bigeminy: On telemetry he has ventricular bigeminy, sometimes he has a sinus beat followed by 2 ventricular beats in a repeating pattern, in the past he has had PVCs on electrocardiograms but not ventricular bigeminy. He does not seem to be aware of this arrhythmia. He does sometimes observe his heart rate to be slow but I suspect that is because of the premature beats, we have seen no actual bradycardia on the monitor. I would not treat him for bradycardia, I think we need higher doses of beta-blockers in order to try to suppress his premature ventricular beats. I do not know that they are an issue and they may be inter mittent, however would like to get some degree of suppression if possible. I am going to stop his atenolol and put him on metoprolol tartrate 50 mg twice daily. His left ventricular function is normal suggesting that these PVCs have not affected his cardiac function although with this frequency that is a worry. 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 He also has a history of COPD, BPH, depression and hypertension. He presented here on August 05, 2019 with several days of shortness of breath. He does wear home oxygen. He presented here with shortness of breath which is apparently due to his lung disease. He was observed to be in ventricular bigeminy and heart rates have been noted to be low, although I believe it is due to a pulse deficit and ventricular bigeminy. He has noticed at home that his heart rate is slow at times. He has never had lightheadedness or dizziness, he has never had palpitations, he does not have exertional chest discomfort. He is limited by his shortness of breath which is probably lung disease. Allergies Allergy/AdvReac Type Severity Reaction Status Date / Time Iodinated Contrast Media Allergy Unknown Verified 08/05/19 13:43 Home Medications Home Medications Medication Instructions Recorded Confirmed Type Lactobacillus acidoph-L.bulgar 1 1 tab PO HS tab 02/11/18 08/05/19 History million cell chewable tablet aspirin 81 mg tablet,delayed 81 mg PO HS tab 02/11/18 08/05/19 History release cholecalciferol (vitamin D3) 50 2,000 units PO HS 02/11/18 08/05/19 History mcg (2,000 unit) capsule polyethylene glycol 3350 17 17 gm PO HS gm 02/11/18 08/05/19 History gram/dose oral powder budesonide-formoterol HFA 160 2 puffs INH BID 03/13/19 08/05/19 History mcg-4.5 mcg/actuation aerosol inhaler amlodipine 10 mg tablet 10 mg PO HS #90 tab 03/17/19 08/05/19 Rx ipratropium 0.5 mg-albuterol 3 mg 3 ml INH DAILY PRN #180 ml 03/28/19 08/05/19 Rx (2.5 mg base)/3 mL nebulization soln ipratropium bromide 0.03 % nasal 2 sprays INTNAS TID PRN #30 ml 04/29/19 08/05/19 Rx spray ipratropium 20 mcg-albuterol 100 2 puffs INH BID gm 06/05/19 08/05/19 History mcg/actuation mist for inhalation docusate sodium 100 mg capsule 100 mg PO PM PRN cap 07/22/19 08/05/19 History warfarin 3 mg tablet See Rx Instructions PO UD #90 tab 07/30/19 08/05/19 Rx atenolol 25 mg PO HS 08/05/19 08/05/19 History benzonatate [Tessalon Perles] 100 mg PO TID PRN 5 Days #15 cap 08/05/19 Rx cephalexin [Keflex] 0 mg PO UD 08/05/19 08/05/19 History escitalopram oxalate 10 mg PO HS 08/05/19 08/05/19 History prednisone 0 mg PO .TAPER DOSE 08/05/19 08/05/19 History simvastatin [Zocor] 10 mg PO HS 08/05/19 08/05/19 History lorazepam 0.5 mg tablet 0.5 mg PO DAILY PRN #20 tab 08/06/19 Rx Patient History Medical History BPH loc w urin obs/LUTS (Chronic) Chronic anticoagulation (Chronic) Constipation (Inactive) COPD (chronic obstructive pulmonary disease) (Inactive) COPD, very severe (Chronic) Hypercoagulable state (Chronic) Pulmonary emphysema Pulmonary emphysema Social phobia (Chronic) Urinary retention (Inactive) Vitamin D insufficiency (Chronic) Surgical History History of abdominal surgery History of cataract surgery bilateral History of laparotomy Family History Mother Cardiomegaly Cardiac disorder Hypertension Father Carotid artery stenosis Coronary heart disease Diabetes Prostate cancer Social History Preferred Language: Arabic Communication Ability: Effective Visual Impairment: Limited Hearing Ability: Normal Stone Layer Required: No Beliefs That Will Affect Care: None marital status: Current Living Situation: Spouse current occupational status: retired Feels Safe at Home: Yes Smoking Status: Former smoker Tobacco Type: cigarettes ; Age Started Using Tobacco: 18 ; Age Quit Using Tobacco: 64 ; packs per day: 1 ; Cigarettes Per Day: 20 ; Hx Alcohol Use: Yes Alcohol type: beer Hx Substance Use: No Childhood Exposure to Second-Hand Smoke: Yes caffeine: Yes Physical Activity Frequency: 3-4 Times per Week Seatbelt Use: always Sunscreen Use: No Review of Systems Review of Systems: All systems reviewed & are unremarkable except as noted in HPI & below Physical Exam Physical Exam: Constitutional: Alert, cooperative and in no distress. He is wearing nasal oxygen. HEENT: Unremarkable Neck: No jugular venous distention, carotid pulses are normal and equal bilaterally without bruits. Pulmonary: Decreased breath sounds and prolonged expiration on auscultation bilaterally. Cardiac: Regular rhythm with a bigeminal pattern and with a grade 2/6 holosystolic murmur at the apex, no gallop or rub. Abdomen: Soft, nontender with normal bowel sounds. Extremities: No edema. Distal pulses intact. Neurologic: No focal findings. Gait is steady. Skin: No rash, ecchymoses or petechiae. Results & Data ([facility]) Vital Signs (Past 12 Hours) Vital Signs Temp Pulse Resp BP Pulse Ox 08/06/19 12:00 78 08/06/19 11:55 39 L 16 98 08/06/19 11:48 36.3 C L 39 L 20 135/61 98 08/06/19 07:15 36.7 C 53 L 20 110/62 96 08/06/19 07:03 54 L 16 97 08/06/19 03:31 36.3 C L 40 L 19 113/52 L 98 08/06/19 03:17 39 L 16 95 Laboratory Results Cardiac Enzymes 08/06/19 Range/Units 06:30 AST 20 (15-37) U/L Coagulation 08/06/19 Range/Units 06:30 PT 42.5 H (9.0-12.0) Seconds Lipids 08/06/19 Range/Units 06:30 Triglycerides 49 (0-150) mg/dl Cholesterol 138 (0-200) mg/dl HDL Cholesterol 63 mg/dl Cholesterol/HDL Ratio 2 CBC 08/06/19 Range/Units 06:30 WBC 8.59 (4.8-10.8) K/uL RBC 4.18 L (4.7-6.1) M/uL Hgb 12.3 L (14.0-18.0) g/dL Hct 39.2 L (42-52) % Plt Count 180 (130-400) K/uL Neut # (Auto) 7.90 H (1.4-6.5) K/uL Lymph # (Auto) 0.38 L (1.2-3.4) K/uL Gilmer # (Auto) 0.29 (0.11-0.59) K/uL Eos # (Auto) 0.00 (0-0.5) K/uL Baso # (Auto) 0.00 (0-0.2) K/uL Comprehensive Metabolic Panel 08/06/19 Range/Units 06:30 Sodium 141 (136-145) mmol/L Potassium 4.1 (3.5-5.1) mmol/L Chloride 110 H (98-107) mmol/L Carbon Dioxide 25 (21-32) mmol/L BUN 34 H (7-18) mg/dl Creatinine 1.29 (0.6-1.4) mg/dl Glucose 150 H (70-99) mg/dl Calcium 8.7 (8.5-10.1) mg/dl AST 20 (15-37) U/L ALT 21 (12-78) U/L Alkaline Phosphatase 67 (45-117) U/L Total Protein 6.2 L (6.4-8.2) gm/dl Albumin 3.1 L (3.4-5.0) gm/dl Intake and Output 08/05/19 08/06/19 08/06/19 22:59 06:59 14:59 Intake Total 1180 / 2380 100 / 2380 655 / 655 Output Total 150 / 250 100 / 250 800 / 800 Balance 1030 / 2130 0 / 2130 -145 / -145 Intake: IV 980 / 2080 110 / 110 Vibramycin 100 mg In D5 100 ml 110 / 110 110 / 110 @ 50 mls/hr IV BID [facility] Rx#: [id number] MAGNESIUM SULFATE / D5W 1 gm In 300 / 400 100 ml @ 100 mls/hr IV Q1H [facility] Rx#:[id number] Nss 1000ML 500 ml @ 999 mls/hr 500 / 500 IV .Q31M [facility] Rx#:[id number] Rocephin 2,000 mg In D5w 50 ml 70 / 70 @ 100 mls/hr IV Q24H [facility] Rx#: [id number] Oral 200 / 300 100 / 300 545 / 545 Output: Urine 150 / 250 100 / 250 800 / 800 Other: Weight 61.5 kg 61.5 kg Diagnostic Findings His presenting electrocardiogram done on August 05, 2019 demonstrates sinus rhythm at 68 bpm with ventricular bigeminy. The premature ventricular beats appear to have a left ventricular origin. Telemetry: Sinus rhythm, no significant tachycardia or bradycardia, bigeminy throughout with occasional periods of a sinus beat followed by ventricular couplet in a bigeminal pattern. Echocardiography done August 06, 2019 shows normal left ventricular size and function with ejection fraction of 60 to 65% and mild concentric left ventri cular hypertrophy. He has moderate mitral regurgitation. PG Care Time/CCT Total # of Minutes Spent Total Time Spent with Patient: Total time spent is greater than 50% in coordination of care (as documented) at patient's floor/unit and/or counseling patient: Coding Level of Care Code 06148 OBS Care - Level 3 Diagnoses Coronary artery disease I25.10 SOB (shortness of breath) R06.02 Chronic anticoagulation Z79.01 Ventricular bigeminy I49.9
[2019-08-06] MEDS: cefTRIAXone SODIUM 2,000 MG in DEXTROSE 5% 50 ML IV SCH (19:51)
--- NOTE | 2019-08-06 20:36 | Hospitalist Progress Note ---
Date of Service August 06, 2019 Assessment & Plan (1) COPD exacerbation: Admit to PCU on telemetry for observation of COPD exacerbation versus pneumonia, Monitor vital signs every 4 hours, Potassium has been replenshed. Continue home inhalers, Started duo nebs every 4 hours scheduled and PRN per RT, Started ceftriaxone 2 g IV every 24 hours and doxycycline 100 mg IV twice daily empirically for possible pneumonia. Ceftriaxone would also cover for presumptive urinary tract infection while urine culture is pending. Sohail was seen 10 mg p.o. every 6 hours as needed, continue fluticasone/vilante 1 puff inhalation daily, DVT prophylaxis: INR is supratherapeutic at 4.4. Hold warfarin and restart when INR is below 2.5. (2) Pulmonary emphysema: As discussed above (3) Depression: Table, continue escitalopram 10 mg p.o. nightly (4) Hypercoagulable state: Patient is on warfarin but now at supratherapeutic state. INR is 4.4. Hold warfarin for day or 2 and restart when INR is 2.5 to keep INR between 2 and 3. (5) Hypertension: Stable, continue home medicine amlodipine 10 mg p.o. nightly, aspirin 81 mg p.o. nightly, atenolol 25 mg p.o. nightly. Monitor blood pressure every 4 hours. (6) Volume overload: Patient lung sounds wet with some crackles present there. Patient appears to have improved with lasix. However, appears to be promarily a lung process. (7) Constipation, acute: Continue home medicine docusate sodium 100 mg p.o. every afternoon as needed, Lactobacillus acidophilus 1 tablet p.o. nightly, MiraLAX 17 g p.o. nightly Admission and Anticipated Discharge Date Admission Date: August 05, 2019 Subjective Patient reports still feeling short of breath. Patient reports feeling somewhat better today as compared to when he first came in the hospital. Patient is asking to be discharged. Review of Systems Review of Systems: All systems reviewed & are unremarkable except as noted in HPI & below Physical Exam Physical Exam: Constitutional: WD/WN, vitals as above well developed Eyes: PERRL, conjunctivae normal, anicteric sclerae ENMT: external ear and nose normal, oropharynx normal Neck: trachea midline, no thyromegaly Respiratory: not in respiratory distress, decreased breath sounds, + hyperresonance to percussion and + prolonged expiratory phase Auscultation: no wheezes Cardiovascular: Heart Sounds: normal S1, normal S2 and + murmur Palpation: + palpable S3 Vessels: dorsalis pedis pulses present Gastrointestinal (Abdomen): normal bowel sounds, soft, nontender, no hepatosplenomegaly Musculoskeletal: no cyanosis or clubbing, extremities motor strength 5/5 Skin: no rashes, warm and dry Neurologic: patellar DTR's 2+ bilat, sensation intact Psychiatric: A+Ox3, euthymic affect Lymphatic: no cervical or axillary lymphadenopathy Results & Data ([facility]) Vital Signs (Past 12 Hours) Vital Signs Temp Pulse Pulse Resp BP Pulse Ox 08/06/19 19:23 36.5 C 78 20 129/65 92 08/06/19 16:00 79 08/06/19 15:24 36.7 C 68 19 119/56 L 95 08/06/19 12:00 78 08/06/19 11:55 39 L 16 98 08/06/19 11:48 36.3 C L 39 L 20 135/61 98 PG Care Time/CCT Total # of Minutes Spent Total Time Spent with Patient: Total time spent is greater than 50% in coordination of care (as documented) at patient's floor/unit and/or counseling patient: Coding Level of Care Code 14629 Subseq Obs Care Lvl 3 Diagnoses COPD exacerbation J44.1 Pulmonary emphysema J43.9 Depression F32.9 Hypercoagulable state D68.59 Hypertension I10 Volume overload E87.70 Constipation, acute K59.00 Time Spent (min) 35
[2019-08-06] MEDS: LACTOBACILLUS ACIDOPHILUS (FLORANEX) TAB PO SCH (20:55)
[2019-08-06] MEDS: SIMVASTATIN 10 MG TAB PO SCH (20:55)
[2019-08-06] MEDS: POLYETHYLENE (MIRALAX) 17 GM PACK PO SCH (20:55)
[2019-08-06] MEDS: AMLODIPINE BESYLATE 5 MG TAB PO SCH (20:55)
[2019-08-06] MEDS: METOPROLOL TARTRATE 50 MG TAB PO SCH (20:55)
[2019-08-06] MEDS: ASPIRIN 81 MG ECTAB PO SCH (20:55)
[2019-08-06] MEDS: CHOLECALCIFEROL 1,000 UNITS 25 MCG TAB PO SCH (20:55)
[2019-08-06] MEDS: ESCITALOPRAM OXALATE 10 MG TAB PO SCH (20:56)
[2019-08-07 06:58] LABS: Basophils # (auto) 0.01 K/uL (0-0.2); Basophils % (auto) 0.1 %; Hematocrit (blood only) 41.3 % (42-52); Hemoglobin 13.3 g/dL (14.0-18.0); Immature Granulocytes # (auto) 0.05 K/uL (0.00-0.02); Immature Granulocytes % (auto) 0.4 %; Lymphocytes # (auto) 0.68 K/uL (1.2-3.4); Lymphocytes % (auto) 5.7 %; Mean Corpuscular Hemoglobin 30.4 pg (25-34); Mean Corpuscular Hgb Conc 32.2 g/dL (32-36); Mean Corpuscular Volume 94.3 fL (80-100); Mean Platelet Volume 11.4 fL (7.4-10.4); Monocytes # (auto) 0.94 K/uL (0.11-0.59); Monocytes % (auto) 7.9 %; Neutrophils % (auto) 85.9 %; Platelet Count 172 K/uL (130-400); RDW Coefficient of Variation 15.2 % (11.5-14.5); RDW Standard Deviation 52.5 fL (36.4-46.3); Red Blood Count 4.38 M/uL (4.7-6.1); White Blood Count 11.88 K/uL (4.8-10.8)
[2019-08-07 07:10] LABS: INR 2.7 (0.9-1.1); Prothrombin Time 27.2 Seconds (9.0-12.0)
[2019-08-07 07:29] LABS: Albumin Level 3.2 gm/dl (3.4-5.0); BUN Creatinine Ratio 34.4 (10-20); Calcium 9.2 mg/dl (8.5-10.1); Creatinine Clr Calc Pharmacy 38.5 ml/min; Est GFR (African American) 66.4; Est GFR (Non-African American) 57.3; Potassium 4.7 mmol/L (3.5-5.1)
[2019-08-07 07:32] LABS: Bilirubin,Total 0.4 mg/dl (0.2-1); Globulin 3.1 gm/dl (2.5-4.0); Total Protein 6.3 gm/dl (6.4-8.2)
[2019-08-07] MEDS: FLUTICASONE/VILANTEROL 100/25MCG 14 PUFFS/INHALER INH SCH (08:18)
[2019-08-07] MEDS: IPRATROPIUM BROMIDE/ALBUTEROL respimat INH INH SCH ×2 (08:19→20:31)
[2019-08-07] MEDS: methylPREDNISolone 40 MG in SYRINGE 0 ML IV SCH (08:20)
[2019-08-07] MEDS: FUROSEMIDE 40 MG in SYRINGE 0 ML IV SCH (08:20)
[2019-08-07] MEDS: METOPROLOL TARTRATE 50 MG TAB PO SCH (08:20)
[2019-08-07] MEDS: DOXYCYCLINE HYCLATE 100 MG in DEXTROSE 5% 100 ML IV SCH ×2 (09:11→20:29)
[2019-08-07] MEDS ORDERED: WARFARIN SOD 3 MG TAB PO SCH (16:00)
--- NOTE | 2019-08-07 16:01 | Cardiology Progress Note ---
Date of Service August 07, 2019 Assessment & Plan (1) Coronary artery disease: He has known coronary disease and has had bypass surgery in the past. He does not describe angina and is limited by his shortness of breath which is probably lung disease not an anginal equivalent. I would not investigate further. (2) SOB (shortness of breath): He has shortness of breath and quite significant lung disease, he does have exertional shortness of breath but I do not think this is an anginal equivalent. (3) Chronic anticoagulation: He is on anticoagulation for a history of DVT. He is on warfarin, he probably could use one of the newer agents which would be easier for him to take but I have not made that change. (4) Ventricular bigeminy: On telemetry he has ventricular bigeminy, sometimes he has a sinus beat followed by 2 ventricular beats in a repeating pattern, in the past he has had PVCs on electrocardiograms but not ventricular bigeminy. He does not seem to be aware of this arrhythmia. He does sometimes observe his heart rate to be slow but I suspect that is because of the premature beats, we have seen no actual bradycardia on the monitor. I would not treat him for bradycardia, I think we need higher doses of beta-blockers in order to try to suppress his premature ventricular beats. I do not know that they are an issue and they may be intermittent, however would like to get some degree of suppression if possible. I am going to increase his metoprolol tartrate 100 mg twice daily. His left ventricular function is normal suggesting that these PVCs have not affected his cardiac function although with this frequency that is a future worry. Admission and Anticipated Discharge Date Admission Date: August 05, 2019 Subjective He continues to be asymptomatic, but he does continue to have ventricular ectopy. Physical Exam Physical Exam: Constitutional: Alert, cooperative and in no distress. He is wearing nasal oxygen. HEENT: Unremarkable Neck: No jugular venous distention, carotid pulses are normal and equal bilaterally without bruits. Pulmonary: Decreased breath sounds and prolonged expiration on auscultation bilaterally. Cardiac: Regular rhythm with a bigeminal pattern and with a grade 2/6 holosystolic murmur at the apex, no gallop or rub. Abdomen: Soft, nontender with normal bowel sounds. Extremities: No edema. Distal pulses intact. Neurologic: No focal findings. Gait is steady. Skin: No rash, ecchymoses or petechiae. Results & Data ([facility]) Vital Signs (Past 12 Hours) Vital Signs Temp Pulse Pulse Resp BP BP Pulse Ox 08/07/19 15:24 36.6 C 50 L 18 113/58 L 94 08/07/19 15:05 80 08/07/19 11:11 36.8 C 44 L 23 116/62 96 08/07/19 08:48 36.5 C 92 H 24 93/58 L 91 08/07/19 08:00 62 08/07/19 04:10 36.4 C L 54 L 18 112/56 L 94 Laboratory Results Cardiac Enzymes 08/07/19 Range/Units 06:40 AST 36 (15-37) U/L Coagulation 08/07/19 Range/Units 06:40 PT 27.2 H (9.0-12.0) Seconds CBC 08/07/19 Range/Units 06:40 WBC 11.88 H (4.8-10.8) K/uL RBC 4.38 L (4.7-6.1) M/uL Hgb 13.3 L (14.0-18.0) g/dL Hct 41.3 L (42-52) % Plt Count 172 (130-400) K/uL Neut # (Auto) 10.20 H (1.4-6.5) K/uL Lymph # (Auto) 0.68 L (1.2-3.4) K/uL Howard # (Auto) 0.94 H (0.11-0.59) K/uL Eos # (Auto) 0.00 (0-0.5) K/uL Baso # (Auto) 0.01 (0-0.2) K/uL Comprehensive Metabolic Panel 08/07/19 Range/Units 06:40 Sodium 144 (136-145) mmol/L Potassium 4.7 (3.5-5.1) mmol/L Chloride 112 H (98-107) mmol/L Carbon Dioxide 29 (21-32) mmol/L BUN 40 H (7-18) mg/dl Creatinine 1.17 (0.6-1.4) mg/dl Glucose 119 H (70-99) mg/dl Calcium 9.2 (8.5-10.1) mg/dl AST 36 (15-37) U/L ALT 46 (12-78) U/L Alkaline Phosphatase 70 (45-117) U/L Total Protein 6.3 L (6.4-8.2) gm/dl Albumin 3.2 L (3.4-5.0) gm/dl Intake and Output 08/07/19 08/07/19 08/07/19 06:59 14:59 22:59 Intake Total 160 / 1280 605 / 605 Output Total 801 / 801 Balance 160 / 280 -196 / -196 Intake: IV 110 / 290 110 / 110 Vibramycin 100 mg In D5 100 ml 110 / 220 110 / 110 @ 50 mls/hr IV BID JAIME Rx#: [id number] Oral 50 / 990 495 / 495 Output: Urine 800 / 800 # Bowel Movements Other: # Unmeasured Voids 2 2 Weight 56.9 kg Diagnostic Findings Telemetry: Sinus rhythm with frequent premature ventricular beats, in a bigeminal pattern sometimes with couplets in a bigeminal pattern and runs of nonsustained ventricular tachycardia, all monomorphic PG Care Time/CCT Total # of Minutes Spent Total Time Spent with Patient: Total time spent is greater than 50% in coordination of care (as documented) at patient's floor/unit and/or counseling patient: Coding Level of Care Code 38076 Subseq Hosp Care Lvl 2 Diagnoses Coronary artery disease I25.10 SOB (shortness of breath) R06.02 Chronic anticoagulation Z79.01 Ventricular bigeminy I49.9
[2019-08-07] MEDS: cefTRIAXone SODIUM 2,000 MG in DEXTROSE 5% 50 ML IV SCH (20:29)
[2019-08-07] MEDS: METOPROLOL TARTRATE 100 MG TAB PO SCH (20:30)
[2019-08-07] MEDS: POLYETHYLENE (MIRALAX) 17 GM PACK PO SCH (20:30)
[2019-08-07] MEDS: AMLODIPINE BESYLATE 5 MG TAB PO SCH (20:31)
[2019-08-07] MEDS: ASPIRIN 81 MG ECTAB PO SCH (20:32)
[2019-08-07] MEDS: ESCITALOPRAM OXALATE 10 MG TAB PO SCH (20:32)
[2019-08-07] MEDS: SIMVASTATIN 10 MG TAB PO SCH ×2 (20:32→21:51)
[2019-08-07] MEDS: LACTOBACILLUS ACIDOPHILUS (FLORANEX) TAB PO SCH (20:33)
[2019-08-07] MEDS: CHOLECALCIFEROL 1,000 UNITS 25 MCG TAB PO SCH (20:33)
--- NOTE | 2019-08-07 22:45 | Hospitalist Progress Note ---
Date of Service August 07, 2019 Assessment & Plan (1) COPD exacerbation: Admit to PCU on telemetry for observation of COPD exacerbation versus pneumonia, Monitor vital signs every 4 hours, Potassium has been replenshed. Continue home inhalers, Started duo nebs every 4 hours scheduled and PRN per RT, Started ceftriaxone 2 g IV every 24 hours and doxycycline 100 mg IV twice daily empirically for possible pneumonia. Ceftriaxone would also cover for presumptive urinary tract infection. Sohail was seen 10 mg p.o. every 6 hours as needed, continue fluticasone/vilante 1 puff inhalation daily, DVT prophylaxis: INR is supratherapeutic at 4.4. Hold warfarin and restart when INR is below 2.5. (2) Ventricular bigeminy: Patient has not been bradycardic despite low pulse readings. His tele monitor has remained in the 80s and 90s. Concern though is that the patient has been in bigeminy with sometimes more frequent VPCs. Has been increasing beta giselle: now will be on metoprolol 100 mg PO BID. (3) Pulmonary emphysema: As discussed above (4) Depression: Table, continue escitalopram 10 mg p.o. nightly (5) Hypercoagulable state: Patient is on warfarin but now at supratherapeutic state. INR is 2.4. Hold warfarin for day or 2 and restart when INR is 2.5 to keep INR between 2 and 3. (6) Hypertension: Stable, continue home medicine amlodipine 10 mg p.o. nightly, aspirin 81 mg p.o. nightly, atenolol 25 mg p.o. nightly. Monitor blood pressure every 4 hours. (7) Volume overload: Patient lung sounds wet with some crackles present there. Patient appears to have improved with lasix. However, appears to be promarily a lung process. (8) Constipation, acute: Continue home medicine docusate sodium 100 mg p.o. every afternoon as needed, Lactobacillus acidophilus 1 tablet p.o. nightly, MiraLAX 17 g p.o. nightly (9) Chronic respiratory failure with hypoxia: Patient with COPD and on chronic oxygen at home. Admission and Anticipated Discharge Date Admission Date: August 07, 2019 Subjective Patient reports no new symptoms. Review of Systems Review of Systems: All systems reviewed & are unremarkable except as noted in HPI & below Physical Exam Physical Exam: Constitutional: WD/WN, vitals as above well developed Eyes: PERRL, conjunctivae normal, anicteric sclerae ENMT: external ear and nose normal, oropharynx normal Neck: trachea midline, no thyromegaly Respiratory: not in respiratory distress, decreased breath sounds, + hyperresonance to percussion and + prolonged expiratory phase Auscultation: no wheezes Cardiovascular: Heart Sounds: normal S1, normal S2 and + murmur Palpation: + palpable S3 Vessels: dorsalis pedis pulses present Gastrointestinal (Abdomen): normal bowel sounds, soft, nontender, no hepatosplenomegaly Musculoskeletal: no cyanosis or clubbing, extremities motor strength 5/5 Skin: no rashes, warm and dry Neurologic: patellar DTR's 2+ bilat, sensation intact Psychiatric: A+Ox3, euthymic affect Lymphatic: no cervical or axillary lymphadenopathy Results & Data ([facility]) Vital Signs (Past 12 Hours) Vital Signs Temp Pulse Pulse Resp BP BP Pulse Ox 08/07/19 19:18 36.4 C L 53 L 18 126/62 95 08/07/19 15:24 36.6 C 50 L 18 113/58 L 94 08/07/19 15:05 80 08/07/19 11:11 36.8 C 44 L 23 116/62 96 PG Care Time/CCT Total # of Minutes Spent Total Time Spent with Patient: Total time spent is greater than 50% in coordination of care (as documented) at patient's floor/unit and/or counseling patient: Coding Level of Care Code 26473 Subseq Hosp Care Lvl 2 Diagnoses COPD exacerbation J44.1 Ventricular bigeminy I49.9 Pulmonary emphysema J43.9 Depression F32.9 Hypercoagulable state D68.59 Hypertension I10 Volume overload E87.70 Constipation, acute K59.00 Chronic respiratory failure with hypoxia J96.11 Time Spent (min) 25
[2019-08-08 06:19] LABS: Basophils # (auto) 0.01 K/uL (0-0.2); Basophils % (auto) 0.1 %; Eosinophils # (auto) 0.03 K/uL (0-0.5); Eosinophils % (auto) 0.3 %; Hematocrit (blood only) 41.8 % (42-52); Hemoglobin 13.3 g/dL (14.0-18.0); Immature Granulocytes # (auto) 0.05 K/uL (0.00-0.02); Immature Granulocytes % (auto) 0.5 %; Lymphocytes # (auto) 1.24 K/uL (1.2-3.4); Lymphocytes % (auto) 11.3 %; Mean Corpuscular Hemoglobin 30.2 pg (25-34); Mean Corpuscular Hgb Conc 31.8 g/dL (32-36); Mean Corpuscular Volume 94.8 fL (80-100); Mean Platelet Volume 11.2 fL (7.4-10.4); Monocytes # (auto) 0.97 K/uL (0.11-0.59); Monocytes % (auto) 8.8 %; Neutrophils # (auto) 8.68 K/uL (1.4-6.5); Platelet Count 183 K/uL (130-400); RDW Coefficient of Variation 14.7 % (11.5-14.5); RDW Standard Deviation 51.3 fL (36.4-46.3); Red Blood Count 4.41 M/uL (4.7-6.1); White Blood Count 10.98 K/uL (4.8-10.8)
[2019-08-08 06:32] LABS: INR 1.4 (0.9-1.1); Prothrombin Time 14.5 Seconds (9.0-12.0)
[2019-08-08 06:51] LABS: Albumin Level 2.9 gm/dl (3.4-5.0); BUN Creatinine Ratio 33.3 (10-20); Calcium 8.7 mg/dl (8.5-10.1); Creatinine Clr Calc Pharmacy 41.5 ml/min; Est GFR (African American) 72.4; Est GFR (Non-African American) 62.4; Potassium 4.2 mmol/L (3.5-5.1)
[2019-08-08 06:54] LABS: Albumin Globulin Ratio 0.9 (0.9-2); Bilirubin,Total 0.5 mg/dl (0.2-1); Globulin 3.1 gm/dl (2.5-4.0)
[2019-08-08] MEDS: FLUTICASONE/VILANTEROL 100/25MCG 14 PUFFS/INHALER INH SCH (08:28)
[2019-08-08] MEDS: FUROSEMIDE 40 MG in SYRINGE 0 ML IV SCH (08:29)
[2019-08-08] MEDS: IPRATROPIUM BROMIDE/ALBUTEROL respimat INH INH SCH ×2 (08:29→20:46)
[2019-08-08] MEDS ORDERED: WARFARIN SOD 3 MG TAB PO ONE (08:30)
[2019-08-08] MEDS: methylPREDNISolone 40 MG in SYRINGE 0 ML IV SCH (08:32)
[2019-08-08] MEDS: METOPROLOL TARTRATE 100 MG TAB PO SCH ×2 (08:35→20:47)
[2019-08-08] MEDS: DOXYCYCLINE HYCLATE 100 MG in DEXTROSE 5% 100 ML IV SCH (08:38)
--- NOTE | 2019-08-08 09:21 | Cardiology Progress Note ---
Date of Service August 08, 2019 Assessment & Plan (1) Coronary artery disease: He has known coronary disease and has had bypass surgery in the past. He does not describe angina and is limited by his shortness of breath which is probably lung disease not an anginal equivalent. I would not investigate further. (2) SOB (shortness of breath): He has shortness of breath and quite significant lung disease, he does have exertional shortness of breath but I do not think this is an anginal equivalent. (3) Chronic anticoagulation: He is on anticoagulation for a history of DVT. He is on warfarin, he probably could use one of the newer agents which would be easier for him to take but I have not made that change. (4) Ventricular bigeminy: On telemetry he had ventricular bigeminy, sometimes he had a sinus beat followed by 2 ventricular beats in a repeating pattern, in the past he has had PVCs on electrocardiograms but not ventricular bigeminy. He does not seem to be aware of this arrhythmia. He does sometimes observe his heart rate to be slow but I suspect that is because of the premature beats, we have seen no significant sinus bradycardia on the monitor. Although he still has PVCs and couplets with some frequency it is clearly improved on his current dose of beta- blockade. I do not know that they are an issue and they may be intermittent, however would like to get some degree of suppression if possible. I would recommend continuing his current dose, I do not believe it is affecting his lung function. Antiarrhythmics are another possibility if we have to cut down his beta-blockade or if we want further suppression. I am going to schedule him to come into the office in about a month and get a Holter monitor then. Admission and Anticipated Discharge Date Admission Date: August 07, 2019 Subjective He continues to be short of breath, he does not feel that his breathing is worse with increasing the beta-blockade. Physical Exam Physical Exam: Constitutional: Alert, cooperative and in no distress. He is wearing nasal oxygen. HEENT: Unremarkable Neck: No jugular venous distention, carotid pulses are normal and equal bila terally without bruits. Pulmonary: Decreased breath sounds and prolonged expiration on auscultation bilaterally. No wheezing. Cardiac: Regular rhythm with a bigeminal pattern and with a grade 2/6 hol osystolic murmur at the apex, no gallop or rub. Abdomen: Soft, nontender with normal bowel sounds. Extremities: No edema. Distal pulses intact. Neurologic: No focal findings. Gait is steady. Skin: No rash, ecchymoses or petechiae. Results & Data ([facility]) Vital Signs (Past 12 Hours) Vital Signs Temp Pulse Pulse Resp BP BP Pulse Ox 08/08/19 08:31 61 118/57 L 95 08/08/19 07:08 36.6 C 45 L 20 118/63 97 08/08/19 03:35 36.3 C L 72 16 117/44 L 95 08/08/19 00:00 60 08/07/19 23:12 36.5 C 60 16 125/58 L 93 Laboratory Results Cardiac Enzymes 08/08/19 Range/Units 05:50 AST 20 (15-37) U/L Coagulation 08/08/19 Range/Units 05:50 PT 14.5 H (9.0-12.0) Seconds CBC 08/08/19 Range/Units 05:50 WBC 10.98 H (4.8-10.8) K/uL RBC 4.41 L (4.7-6.1) M/uL Hgb 13.3 L (14.0-18.0) g/dL Hct 41.8 L (42-52) % Plt Count 183 (130-400) K/uL Neut # (Auto) 8.68 H (1.4-6.5) K/uL Lymph # (Auto) 1.24 (1.2-3.4) K/uL Boyle # (Auto) 0.97 H (0.11-0.59) K/uL Eos # (Auto) 0.03 (0-0.5) K/uL Baso # (Auto) 0.01 (0-0.2) K/uL Comprehensive Metabolic Panel 08/08/19 Range/Units 05:50 Sodium 142 (136-145) mmol/L Potassium 4.2 (3.5-5.1) mmol/L Chloride 109 H (98-107) mmol/L Carbon Dioxide 31 (21-32) mmol/L BUN 36 H (7-18) mg/dl Creatinine 1.09 (0.6-1.4) mg/dl Glucose 83 (70-99) mg/dl Calcium 8.7 (8.5-10.1) mg/dl AST 20 (15-37) U/L ALT 39 (12-78) U/L Alkaline Phosphatase 67 (45-117) U/L Total Protein 6.0 L (6.4-8.2) gm/dl Albumin 2.9 L (3.4-5.0) gm/dl Intake and Output 08/07/19 08/08/19 08/08/19 22:59 06:59 14:59 Intake Total 480 / 1085 Output Total 301 / 1353 250 / 1353 Balance 179 / -268 -250 / -268 Intake: IV 180 / 290 Vibramycin 100 mg In D5 100 ml 110 / 220 @ 50 mls/hr IV BID JAIME Rx#: [id number] Rocephin 2,000 mg In D5w 50 ml 70 / 70 @ 100 mls/hr IV Q24H JAIME Rx#: [id number] Oral 300 / 795 Output: Urine 300 / 1350 250 / 1350 # Bowel Movements 1 / 3 Other: Weight 57.1 kg Diagnostic Findings Telemetry: Sinus rhythm and sinus bradycardia with frequent premature ventricular beats, he still has a lot of premature beats however the frequency is markedly improved compared to prior days. Less ventricular tachycardia. He still has couplets and occasional triplets. PG Care Time/CCT Total # of Minutes Spent Total Time Spent with Patient: Total time spent is greater than 50% in coordination of care (as documented) at patient's floor/unit and/or counseling patient: Coding Level of Care Code 78460 Subseq Hosp Care Lvl 2 Diagnoses Coronary artery disease I25.10 SOB (shortness of breath) R06.02 Chronic anticoagulation Z79.01 Ventricular bigeminy I49.9
[2019-08-08] MEDS ORDERED: COUGH DROP (SUGAR FREE) LOZ 24 LOZ/1 BOX BUCCAL ONE (13:19)
[2019-08-08] MEDS ORDERED: COUGH DROP (SUGAR FREE) LOZ 24 LOZ/1 BOX BUCCAL PRN (14:45)
--- NOTE | 2019-08-08 18:40 | CT Scan Report ---
CT chest wo con CLINICAL HISTORY: copd exacerbation COMPARISON STUDY: No previous studies for comparison. CT DOSE: 305.29 mGycm TECHNIQUE: CT of the thorax was performed from the thoracic inlet to the lung bases. Images are revi ewed in the axial, sagittal, and coronal planes. IV contrast was not administered for this examinatio n. A dose lowering technique was utilized adhering to the principles of ALARA. FINDINGS: Thyroid: Imaged portions of the thyroid gland are normal in appearance. Thoracic aorta: The thoracic aorta is normal in course and caliber, noting standard 3 vessel arch kalyani andreia. Heart: The heart is normal in size. There are coronary artery calcifications. There is no significant pericardial effusion. Lungs and pleural spaces: There are small bilateral pleural effusions. There is moderate to severe pu lmonary emphysema. There is mild lower lobe bronchial wall thickening. There is a 5 mm subpleural lef t lower lobe pulmonary nodule. There is a 3 mm subpleural right lower lobe pulmonary nodule. There is a 5 mm subpleural right upper lobe pulmonary nodule. Mediastinum: There is no evidence of pathologic mediastinal lymphadenopathy. Subcarinal lymph nodes a re the upper limits of normal in size measuring 9 mm in short axis. Svitlana: There is no evidence of pathologic hilar adenopathy given the limitations of a noncontrast stud y Axilla: There is no evidence of pathologic axillary lymphadenopathy Upper abdomen: Partially visualized upper abdominal viscera is within normal limits. Skeletal structures: There are no lytic or blastic osseous lesions. IMPRESSION: 1. Moderate to severe pulmonary emphysema 2. No evidence of focal pulmonary consolidation 3. No evidence of pathologic adenopathy given the limitations of noncontrast study 4. Small bilateral pleural effusions 5. Bilateral subcentimeter pulmonary nodules measuring up to 5 mm. In a low-risk patient, no further follow-up is indicated. In a high-risk patient, a 12 month follow-up is optional Please refer to below summary of Fleischner criteria recommendations for follow-up of incidental CT n odules (Gina Brumfield, Guidelines for management of small pulmonary nodules detected on CT scans: A sta tement from the Fleischner Society, Radiology 237: [phone].) SOLID NODULES Solitary nodule size: <6 mm * low risk patients: no follow-up needed * high risk patients: optional CT at 12 months Solitary nodule size: 6-8 mm * low risk patients: follow-up at 6-12 months, then consider further follow-up at 18-24 months * high risk patients: initial follow-up CT at 6-12 months and then at 18-24 months if no change Solitary nodule size: >8 mm * either low or high risk patients - consider follow-up CT at 3 months, and/or CT-PET, and/or biopsy Multiple nodules size: <6 mm * low risk patients: no routine follow-up * high risk patients: optional CT at 12 months Multiple nodules size: 6-8 mm * low risk patients: follow-up at 3-6 months, then consider further follow-up at 18-24 months * high risk patients: follow-up at 3-6 months, then at 18-24 months if no change Multiple nodules size: >8 mm * low risk patients: follow-up at 3-6 months, then consider further follow-up at 18-24 months * high risk patients: follow-up at 3-6 months, then at 18-24 months if no change Note: newly detected indeterminate nodule in persons 35 years of age or older. * low risk patients: minimal or absent history of smoking and/or other known risk factors * high risk patients: history of smoking or of other known risk factors (e.g. first degree relative with lung cancer, or exposure to asbestos, radon, uranium) * if a nodule up to 8 mm is partly solid or is ground glass further follow-up is required after 24 m onths to exclude possible slow growing adenocarcinoma (FAWAD) SUBSOLID NODULES Solitary pure ground-glass nodule * nodule size <6 mm - no CT follow-up required * nodule size >=6 mm - follow-up CT at 6-12 months, then every 2 years until 5 years Solitary part-solid nodule * nodule size <6 mm - no CT follow-up required * nodule size >=6 mm - follow-up CT at 3-6 months. If unchanged, and solid component remains <6 mm, then annual follow-up for 5 years Multiple subsolid nodules * nodule size <6 mm - follow-up CT at 3-6 months, consider further follow-up at 2 and 4 years if sta ble * nodule size >=6 mm - follow-up CT at 3-6 months, subsequent management based on the most suspiciou s nodule(s) ACT 112: Negative or not required by law. Electronically signed by: Viktor Luna M.D. 08/08/2019 6:39 PM
[2019-08-08] MEDS: cefTRIAXone SODIUM 2,000 MG in DEXTROSE 5% 50 ML IV SCH (20:38)
[2019-08-08] MEDS: DOXYCYCLINE HYCLATE 100 MG CAP PO SCH (20:48)
[2019-08-08] MEDS: ESCITALOPRAM OXALATE 10 MG TAB PO SCH (20:48)
[2019-08-08] MEDS: POLYETHYLENE (MIRALAX) 17 GM PACK PO SCH (20:49)
[2019-08-08] MEDS: AMLODIPINE BESYLATE 5 MG TAB PO SCH (20:49)
[2019-08-08] MEDS: ASPIRIN 81 MG ECTAB PO SCH (20:50)
[2019-08-08] MEDS: LACTOBACILLUS ACIDOPHILUS (FLORANEX) TAB PO SCH (20:50)
[2019-08-08] MEDS: CHOLECALCIFEROL 1,000 UNITS 25 MCG TAB PO SCH (20:51)
[2019-08-08] MEDS: SIMVASTATIN 10 MG TAB PO SCH (20:51)
--- NOTE | 2019-08-08 23:07 | Hospitalist Progress Note ---
Date of Service August 08, 2019 Assessment & Plan (1) COPD exacerbation: Admit to PCU on telemetry for observation of COPD exacerbation versus pneumonia, Monitor vital signs every 4 hours, Potassium has been replenshed. Continue home inhalers, Continue ceftriaxone 2 g IV every 24 hours and doxycycline 100 mg IV twice daily empirically for possible pneumonia. Doubt UTI given no bacteruria. Sohail was seen 10 mg p.o. every 6 hours as needed, continue fluticasone/vilante 1 puff inhalation daily, DVT prophylaxis: INR is supratherapeutic at 4.4. Hold warfarin and restart when INR is below 2.5. Family requesting pulmonary consult. Will obtain ct scan of chest. (2) Ventricular bigeminy: Patient has not been bradycardic despite low pulse readings. His tele monitor has remained in the 80s and 90s. Concern though is that the patient has been in bigeminy with sometimes more frequent VPCs. Has been increasing beta giselle: now will be on metoprolol 100 mg PO BID. After this increase, his heart rate has been controlled. (3) Pulmonary emphysema: As discussed above (4) Depression: Table, continue escitalopram 10 mg p.o. nightly (5) Hypercoagulable state: Patient is on warfarin but now at supratherapeutic state. INR issubtherapeutic. will resume warfarin. (6) Hypertension: Stable, continue home medicine amlodipine 10 mg p.o. nightly, aspirin 81 mg p.o. nightly, atenolol 25 mg p.o. nightly. Monitor blood pressure every 4 hours. (7) Volume overload: Patient lung sounds wet with some crackles present there. Patient appears to have improved with lasix. However, appears to be promarily a lung process. (8) Constipation, acute: Continue home medicine docusate sodium 100 mg p.o. every afternoon as needed, Lactobacillus acidophilus 1 tablet p.o. nightly, MiraLAX 17 g p.o. nightly (9) Chronic respiratory failure with hypoxia: Patient with COPD and on chronic oxygen at home. Admission and Anticipated Discharge Date Admission Date: August 07, 2019 Subjective 83 yo male reports still feeling short of breath. He has improved while being in the hospital but continues to have SOB especially on exertion. Patient reports this is not his baseline. Review of Systems Review of Systems: All systems reviewed & are unremarkable except as noted in HPI & below Physical Exam Physical Exam: Constitutional: WD/WN, vitals as above well developed Eyes: PERRL, conjunctivae normal, anicteric sclerae ENMT: external ear and nose normal, oropharynx normal Neck: trachea midline, no thyromegaly Respiratory: not in respiratory distress, decreased breath sounds, + hyperresonance to percussion and + prolonged expiratory phase Auscultation: no wheezes Cardiovascular: Heart Sounds: normal S1, normal S2 and + murmur Palpation: + palpable S3 Vessels: dorsalis pedis pulses present Gastrointestinal (Abdomen): normal bowel sounds, soft, nontender, no hepatosplenomegaly Musculoskeletal: no cyanosis or clubbing, extremities motor strength 5/5 Skin: no rashes, warm and dry Neurologic: patellar DTR's 2+ bilat, sensation intact Psychiatric: A+Ox3, euthymic affect Lymphatic: no cervical or axillary lymphadenopathy Results & Data ([facility]) Vital Signs (Past 12 Hours) Vital Signs Temp Pulse Pulse Resp BP Pulse Ox 08/08/19 19:22 36.5 C 57 L 18 123/66 98 08/08/19 16:05 52 L 08/08/19 15:48 36.4 C L 57 L 20 135/63 92 08/08/19 14:44 47 L 08/08/19 11:34 60 PG Care Time/CCT Total # of Minutes Spent Total Time Spent with Patient: Total time spent is greater than 50% in coordination of care (as documented) at patient's floor/unit and/or counseling patient: Coding Level of Care Code 73737 Subseq Hosp Care Lvl 3 Diagnoses COPD exacerbation J44.1 Ventricular bigeminy I49.9 Pulmonary emphysema J43.9 Depression F32.9 Hypercoagulable state D68.59 Hypertension I10 Volume overload E87.70 Constipation, acute K59.00 Chronic respiratory failure with hypoxia J96.11 Time Spent (min) 35 Comment updated .
[2019-08-09 07:10] LABS: Eosinophils # (auto) 0.01 K/uL (0-0.5); Eosinophils % (auto) 0.1 %; Hematocrit (blood only) 42.4 % (42-52); Hemoglobin 13.7 g/dL (14.0-18.0); Immature Granulocytes # (auto) 0.03 K/uL (0.00-0.02); Immature Granulocytes % (auto) 0.3 %; Lymphocytes # (auto) 0.94 K/uL (1.2-3.4); Mean Corpuscular Hemoglobin 29.7 pg (25-34); Mean Corpuscular Hgb Conc 32.3 g/dL (32-36); Mean Platelet Volume 11.2 fL (7.4-10.4); Monocytes # (auto) 0.94 K/uL (0.11-0.59); Neutrophils # (auto) 8.48 K/uL (1.4-6.5); Neutrophils % (auto) 81.6 %; Platelet Count 187 K/uL (130-400); RDW Coefficient of Variation 14.4 % (11.5-14.5); RDW Standard Deviation 48.1 fL (36.4-46.3); Red Blood Count 4.61 M/uL (4.7-6.1)
[2019-08-09 07:44] LABS: Albumin Level 2.7 gm/dl (3.4-5.0); BUN Creatinine Ratio 31.6 (10-20); Calcium 8.6 mg/dl (8.5-10.1); Creatinine Clr Calc Pharmacy 41.2 ml/min; Est GFR (African American) 71.6; Est GFR (Non-African American) 61.8; Potassium 3.7 mmol/L (3.5-5.1)
[2019-08-09 07:46] LABS: Albumin Globulin Ratio 0.9 (0.9-2); Bilirubin,Total 0.6 mg/dl (0.2-1); Globulin 3.1 gm/dl (2.5-4.0); Total Protein 5.8 gm/dl (6.4-8.2)
[2019-08-09] MEDS: FUROSEMIDE 40 MG in SYRINGE 0 ML IV SCH (09:03)
[2019-08-09] MEDS: FLUTICASONE/VILANTEROL 100/25MCG 14 PUFFS/INHALER INH SCH (09:04)
[2019-08-09] MEDS: methylPREDNISolone 40 MG in SYRINGE 0 ML IV SCH (09:04)
[2019-08-09] MEDS: IPRATROPIUM BROMIDE/ALBUTEROL respimat INH INH SCH (09:05)
[2019-08-09] MEDS: DOXYCYCLINE HYCLATE 100 MG CAP PO SCH (09:06)
[2019-08-09] MEDS: METOPROLOL TARTRATE 100 MG TAB PO SCH (09:06)
[2019-08-09] MEDS ORDERED: WARFARIN SOD 3 MG TAB PO STA (10:17)
--- NOTE | 2019-08-09 12:17 | Pulmonary Consultation ---
Date of Consultation August 09, 2019 Assessment & Plan (1) COPD exacerbation: I strongly encourage the use of a maintenance inhaler. Recommend starting him on Stiolto which is a long-acting beta agonist and a long-acting muscarinic antagonist combination inhaler. This can be used once a day. Recommend using either duo nebs or albuterol on a as needed basis. He needs to stick to 1 4 medication as a as needed to simplify his regimen. Seems that he is using Combivent as a maintenance inhaler. Combivent is not a maintenance inhaler. This could increase his risk of tachycardia, atrial fibrillation heart failure if we used repeatedly. I recommend a total of 5 days of prednisone. He did complete a course of 5 days of antibiotics as well. He does not appear to be overtly infected with any pneumonia. Recommend discharge at this time as he is back to his baseline. I also indicated to him that he should avoid sick family members or friends and use good hand hygiene and social distancing in light of the recent COVID-19 pandemic. (2) Diastolic heart failure: (3) Chronic hypoxemic respiratory failure: History of Present Illness Reason for Consultation: Severe COPD Requesting Physician: Hospitalist service Attending Physician: Chano Godfrey History of Present Illness 83-year-old female with a known history of DVT, bypass surgery for coronary artery disease, severe COPD, chronic hypoxemic respiratory failure who presented to the hospital on 08/05/2019 due to increasing shortness of breath. Patient denies any significant coughing, fevers, chills, chest pain or night sweats. He denies any recent sick contact or travel. He was seen by his chute puller Dr. farley in the clinic on 08/05/2019 who advised coming to the emergency room. Dr. farley noted that the patient was coughing and wheezing progressively for 2 days prior to hospital admission. He notes that he does not expectorate his sputum but rather swallows it. He has been treated with IV steroids and antibiotics. He is also been receiving IV Solu-Medrol 40 mg daily. I asked him regarding his inhaler regimen and it was quite unclear. He notes that he uses albuterol very sparingly. He uses Combivent several times a day. He is not on any form of maintenance inhaler. He also uses duo nebs frequently. There is Symbicort that is listed as a home medication, but it does not appear that he is using it based on my discussion with him. Allergies Allergy/AdvReac Type Severity Reaction Status Date / Time Iodinated Contrast Media Allergy Unknown Verified 08/05/19 13:43 Home Medications Home Medications Medication Instructions Recorded Confirmed Type Lactobacillus acidoph-L.bulgar 1 1 tab PO HS tab 02/11/18 08/05/19 History million cell chewable tablet aspirin 81 mg tablet,delayed 81 mg PO HS tab 02/11/18 08/05/19 History release cholecalciferol (vitamin D3) 50 2,000 units PO HS 02/11/18 08/05/19 History mcg (2,000 unit) capsule polyethylene glycol 3350 17 17 gm PO HS gm 02/11/18 08/05/19 History gram/dose oral powder budesonide-formoterol HFA 160 2 puffs INH BID 03/13/19 08/05/19 History mcg-4.5 mcg/actuation aerosol inhaler amlodipine 10 mg tablet 10 mg PO HS #90 tab 03/17/19 08/05/19 Rx ipratropium 0.5 mg-albuterol 3 mg 3 ml INH DAILY PRN #180 ml 03/28/19 08/05/19 Rx (2.5 mg base)/3 mL nebulization soln ipratropium bromide 0.03 % nasal 2 sprays INTNAS TID PRN #30 ml 04/29/19 08/05/19 Rx spray ipratropium 20 mcg-albuterol 100 2 puffs INH BID gm 06/05/19 08/05/19 History mcg/actuation mist for inhalation docusate sodium 100 mg capsule 100 mg PO PM PRN cap 07/22/19 08/05/19 History warfarin 3 mg tablet See Rx Instructions PO UD #90 tab 07/30/19 08/05/19 Rx atenolol 25 mg PO HS 08/05/19 08/05/19 History benzonatate [Tessalon Perles] 100 mg PO TID PRN 5 Days #15 cap 08/05/19 Rx cephalexin [Keflex] 0 mg PO UD 08/05/19 08/05/19 History escitalopram oxalate 10 mg PO HS 08/05/19 08/05/19 History prednisone 0 mg PO .TAPER DOSE 08/05/19 08/05/19 History simvastatin [Zocor] 10 mg PO HS 08/05/19 08/05/19 History lorazepam 0.5 mg tablet 0.5 mg PO DAILY PRN #20 tab 08/06/19 Rx cefuroxime axetil 500 mg PO BID 4 Days #8 tab 08/08/19 Rx doxycycline hyclate 100 mg PO BID #9 cap 08/08/19 Rx metoprolol succinate 200 mg PO PM #30 tab 08/08/19 Rx prednisone 10 mg PO DAILY #20 tab 08/08/19 Rx Patient History Medical History BPH loc w urin obs/LUTS (Chronic) Chronic anticoagulation (Chronic) Constipation (Inactive) COPD (chronic obstructive pulmonary disease) (Inactive) COPD, very severe (Chronic) Hypercoagulable state (Chronic) Pulmonary emphysema Pulmonary emphysema Social phobia (Chronic) Urinary retention (Inactive) Vitamin D insufficiency (Chronic) Surgical History History of abdominal surgery History of cataract surgery bilateral History of laparotomy Family History Mother Cardiomegaly Cardiac disorder Hypertension Father Carotid artery stenosis Coronary heart disease Diabetes Prostate cancer Social History Preferred Language: Ukrainian Communication Ability: Effective Visual Impairment: Limited Hearing Ability: Normal Analysis Mgr Required: No Beliefs That Will Affect Care: None marital status: Current Living Situation: Spouse current occupational status: retired Feels Safe at Home: Yes Smoking Status: Former smoker Tobacco Type: cigarettes ; Age Started Using Tobacco: 18 ; Age Quit Using Tobacco: 64 ; packs per day: 1 ; Cigarettes Per Day: 20 ; Hx Alcohol Use: Yes Alcohol type: beer Hx Substance Use: No Childhood Exposure to Second-Hand Smoke: Yes caffeine: Yes Physical Activity Frequency: 3-4 Times per Week Seatbelt Use: always Sunscreen Use: No Review of Systems Review of Systems: All systems reviewed & are unremarkable except as noted in HPI & below Physical Exam Constitutional: Patient appears elderly and is laying in bed. He has a nasal cannula in place. His daughter is at bedside. Eyes: PERRL, conjunctivae normal, anicteric sclerae ENMT: external ear and nose normal, oropharynx normal Neck: normal visual inspection Respiratory: normal respiratory effort, lungs clear to auscultation Cardiovascular: RRR, no murmur, no edema Gastrointestinal (Abdomen): normal bowel sounds, soft, nontender, no hepatosplenomegaly Musculoskeletal: no cyanosis or clubbing, extremities motor strength 5/5 Skin: no rashes, warm and dry Neurologic: PERRL, EOMI, accommodation nl, no face palsy, no dysarthria Psychiatric: A+Ox3, euthymic affect Results & Data ([facility]) Vital Signs (Past 12 Hours) Vital Signs Temp Pulse Pulse Resp BP Pulse Ox 08/09/19 11:58 98.2 F 50 L 18 118/60 96 08/09/19 07:44 97.7 F 62 17 138/66 98 08/09/19 04:10 97.5 F L 54 L 18 125/60 96 08/09/19 00:39 61 PG Care Time/CCT Total # of Minutes Spent Total Time Spent with Patient: Total time spent is greater than 50% in coordination of care (as documented) at patient's floor/unit and/or counseling patient: Coding Level of Care Code 09675 Initial Inpt Care Lvl 3 Diagnoses COPD exacerbation J44.1 Diastolic heart failure I50.30 Chronic hypoxemic respiratory failure J96.11
--- NOTE | 2019-08-15 07:53 | Discharge Summary ---
Date of Service August 09, 2019 Admission HPI Per Admitting Provider The patient is an 83 years old white male with past medical history of CABG, coronary artery disease, COPD, BPH LUTS, hypercoagulable state on warfarin, constipation, depression, hypertension, who presents to the emergency room with a shortness of breath for several days. The patient stated he has been having a productive cough for the past couple of days. Patient states he wears 2 L of oxygen at home at all times. He reports taking Coumadin and his last INR was within the normal limits between 2 and 3. Patient reports that his appetite is poor. Patient's PCP Dr. Crawford send the patient to the emergency room. Patient reports that he had a flu shot this year. Patient denies fever, chills, chest pain, abdominal pain, frequency, urgency, syncope or near syncope. Patient denies sick contact or recent travel. Patient was smoker in the past and quit smoking in 2000. Labs are reviewed which shows WBCs of 11.96, hemoglobin 13.2, hematocrit 41.3, platelets 197, PT 34.5, INR 3.5, APTT 42.1, VBG 7.39, PCO2 46, PO2 40, VBG HCO3 27, sodium 143, potassium 4.5, chloride 112, carbon dioxide 27, anion gap 4, BUN 36, creatinine 1.3, GFR 50.5, BUN/creatinine 27.9, glucose 97, calcium 9.6, magnesium 2.4, total bilirubin 0.4, AST 23, ALT 21, alkaline phosphatase 78, troponin 0.015, BNP 3460, protein 7.1, albumin 3.5, globulin 3.6. Urine cloudy, 1+ protein, Trace, Negative Nitrates, Negative Blood, Trace Leukocyte Estrace, WBCs 5-10, Epithelial Cells 10-20, influenza A is negative, influenza B is negative. Chest x-ray shows cardiomegaly and emphysema with no acute cardiopulmonary abnormalities. No airspace consolidation or large pleural effusion is identified. No pneumothorax seen. Patient is status post midline sternotomy. Decision was made to admit patient to PCU on telemetry for observation for COPD exacerbation and to rule out possible pneumonia. Principal Diagnosis COPD exacerbation Discharge Exam Constitutional: WD/WN, vitals as above well developed Eyes: PERRL, conjunctivae normal, anicteric sclerae ENMT: external ear and nose normal, oropharynx normal Neck: trachea midline, no thyromegaly Respiratory: not in respiratory distress, decreased breath sounds, + hyperresonance to percussion and + prolonged expiratory phase Auscultation: no wheezes Cardiovascular: Heart Sounds: normal S1, normal S2 and + murmur Palpation: + palpable S3 Vessels: dorsalis pedis pulses present Gastrointestinal (Abdomen): normal bowel sounds, soft, nontender, no hepatosplenomegaly Musculoskeletal: no cyanosis or clubbing, extremities motor strength 5/5 Skin: no rashes, warm and dry Neurologic: patellar DTR's 2+ bilat, sensation intact Psychiatric: A+Ox3, euthymic affect Lymphatic: no cervical or axillary lymphadenopathy Discharge Data Allergies Allergy/AdvReac Type Severity Reaction Status Date / Time Iodinated Contrast Media Allergy Unknown Verified 08/05/19 13:43 Consultations 08/05/19 17:20 ED Decision to Admit Stat 08/06/19 12:39 Consult Cardiology Routine 08/08/19 19:09 Consult Pulmonology Routine Ordered Studies 08/08/19 17:12 CT chest wo con Routine Hospital Course (1) COPD exacerbation: Admit to PCU on telemetry for observation of COPD exacerbation versus pneumonia, Monitor vital signs every 4 hours, Potassium has been replenshed. Continue home inhalers, Was treated with ceftriaxone 2 g IV every 24 hours and doxycycline 100 mg IV twice daily empirically for possible pneumonia. Course completed in hospital stay Doubt UTI given no bacteruria. continue fluticasone/vilante 1 puff inhalation daily. Patient had a slow recovery. Patient required education on his medications at home. Explained difference between rescue inhaler and maintenance medications. Added an antichonergic medication for home. Recommend he follows with Dr Crawford. will discharge on a steroid taper. (2) Ventricular bigeminy: Patient has not been bradycardic despite low pulse readings. His tele monitor has remained in the 80s and 90s. Concern though is that the patient has been in bigeminy with sometimes more frequent VPCs. Has been increasing beta giselle: now will be on metoprolol 100 mg PO BID. After this increase, his heart rate has been controlled. (3) Pulmonary emphysema: As discussed above (4) Depression: Table, continue escitalopram 10 mg p.o. nightly (5) Hypercoagulable state: Patient is on warfarin but now at supratherapeutic state. INR issubtherapeutic. will resume warfarin. (6) Hypertension: Stable, continue home medicine amlodipine 10 mg p.o. nightly, aspirin 81 mg p.o. nightly, atenolol 25 mg p.o. nightly. Monitor blood pressure every 4 hours. (7) Volume overload: Patient lung sounds wet with some crackles present there. Patient appears to have improved with lasix. However, appears to be promarily a lung process. (8) Constipation, acute: Continue home medicine docusate sodium 100 mg p.o. every afternoon as needed, Lactobacillus acidophilus 1 tablet p.o. nightly, MiraLAX 17 g p.o. nightly (9) Chronic respiratory failure with hypoxia: Patient with COPD and on chronic oxygen at home. Total Time Total Time Spent Total Time Spent (In Minutes): 35 Total Time Includes: Examination of the Patient, Discharge Planning and Medication Reconciliation Discharge Plan Discharge Items Patient Disposition: Home - Self-Care Reason For Visit: COPD EXACERBATION Discharge Diagnosis: COPD exacerbation Condition on Discharge: Good Activity: Resume your previous activity Non-emergency contact: Primary Care Provider Call non-emergency contact if: you have any medication questions Follow-up/Referrals: Derrick Charles MD [Primary Care Provider] - 08/19/19 3:15 pm Vince John MD [Physician] - 08/18/19 10:00 am Diet: Heart Healthy Addtl Attending Provider Instructions: You have been hospitalized for an acute medical problem. During your stay at [facility], we have made an effort to correct the problem that brought you to the hospital while keeping you as comfortable as possible. Medications were used to bring your condition under control and your discharge instructions will include directions for any medications you should take after leaving the hospital. Please make sure you see your Primary Care Provider as part of your follow up plan. Take symbiocrt twice a day. That will help limit your flair ups. Pending Studies at Discharge: No Stand-Alone Forms: My [facility], Smoking Cessation Medications and DC Order Prescriptions: New metoprolol succinate 200 mg tablet extended release 24 hr 200 mg PO PM Qty: 30 RF: 0 prednisone 10 mg tablet 10 mg PO DAILY Qty: 20 RF: 0 Continued aspirin [Ecotrin Low Strength] 81 mg tablet,delayed release (DR/EC) 81 mg PO HS RF: 0 cholecalciferol (vitamin D3) 2,000 unit capsule 2,000 units PO HS RF: 0 Lactobacillus acidoph-L.bulgar [Lactinex] 1 million cell tablet,chewable 1 tab PO HS RF: 0 polyethylene glycol 3350 [Miralax] 17 gram/dose powder 17 gm PO HS RF: 0 docusate sodium [Colace] 100 mg capsule 100 mg PO PM PRN (Reason: Constipation) RF: 0 amlodipine [Norvasc] 10 mg tablet 10 mg PO HS Qty: 90 RF: 1 ipratropium-albuterol 0.5 mg-3 mg(2.5 mg base)/3 mL solution for nebulization 3 ml INH DAILY PRN (Reason: shortness of breath) Qty: 180 RF: 3 warfarin 3 mg tablet See Rx Instructions PO UD Qty: 90 RF: 3 lorazepam 0.5 mg tablet 0.5 mg PO DAILY PRN (Reason: anxiety) Qty: 20 RF: 0 Symbicort 160-4.5 mcg/actuation HFA aerosol inhaler 2 puffs INH BID RF: 0 ipratropium bromide 0.03 % spray,non-aerosol 2 sprays INTNAS TID PRN (Reason: runny nose) Qty: 30 RF: 5 simvastatin [Zocor] 10 mg tablet 10 mg PO HS RF: 0 escitalopram oxalate 10 mg tablet 10 mg PO HS RF: 0 Changed Combivent Respimat 20-100 mcg/actuation mist 2 puffs INH BID PRN (Reason: wheezing) Qty: 0 RF: 0 Discontinued prednisone 10 mg Tablets,Dose Pack 0 mg PO .TAPER DOSE RF: 0 cephalexin [Keflex] 500 mg Capsule 0 mg PO UD RF: 0 atenolol 25 mg tablet 25 mg PO HS RF: 0 No Action Incruse Ellipta 62.5 mcg/actuation blister with device 1 puffs INH DAILY RF: 0 Discharge Orders: Discharge Order (Routine); Ordered 08/09/19 Ordered By: Chano Godfrey Admission Data Admit Date/Time: 08/07/19 18:43 Attending Provider: Chano Godfrey Admit Provider: Abdulaziz Jones Primary Care Provider: Derrick Charles Other Providers: Abdulaziz Jones ; Rory Miller ; Vince John Other Interventions: Discharge Summary Assessment (RN) Last Done: 08/09/19 12:58 DC Date/Time DO NOT enter until pt leaves facility: 08/09/19 13:44 Coding Level of Care Code D/C Day Management >30 mins Diagnoses COPD exacerbation J44.1 Ventricular bigeminy I49.9 Pulmonary emphysema J43.9 Depression F32.9 Hypercoagulable state D68.59 Hypertension I10 Volume overload E87.70 Constipation, acute K59.00 Chronic respiratory failure with hypoxia J96.11
== END 2019-08-09 13:44 | disposition home or self-care (01) | DRG 191 ==
LOC: ED 12:15 → 2S 12:15 → SUATTDRO 17:25 → 2S 18:09

== ENCOUNTER 2022-02-10 12:38 | Inpatient (IN) ==
--- NOTE | 2022-02-10 14:50 | XRay Report ---
XR chest 1V portable CLINICAL HISTORY: SOB TECHNIQUE: Single frontal radiograph of the chest was obtained. Comparison: Comparison is made to chest radiograph 09/01/2020 FINDINGS: Median sternotomy wires are unchanged. Cardiomegaly is noted. Emphysema is noted. No airspace opacity . No evidence of pleural effusion or pneumothorax. A hiatal hernia is seen. IMPRESSION: No acute abnormalities and in particular no evidence of pneumonia. Emphysema is seen. ACT 112: Negative or not required by law. Electronically signed by: Bon Jay M.D. 02/10/2022 2:48 PM
[2022-02-10] MEDS ORDERED: ALBUT/IPRATROP 3MG/0.5MG NEB 3 ML VIAL NEB STA (14:59)
[2022-02-10] MEDS ORDERED: ACETAMINOPHEN 1000 MG/100 ML IV IV STA (15:00)
--- NOTE | 2022-02-10 15:04 | Emergency Department Note ---
Impression & Plan SOB (shortness of breath), Pneumonia, Left-sided chest pain, COPD exacerbation ED Provider Note NAME: NICOLASA AGUIRRE AGE: 86 SEX: M : 1935 ARRIVES VIA: Walk-In INFORMANT: [Patient][] ED PROVIDER(S): [Xiang Veloz MD] CHIEF COMPLAINT: Respiratory problems HISTORY OF PRESENT ILLNESS: The patient is an 86-year-old male who presents to the ER with about 1 day of left-sided chest pain and some increased shortness of breath. His noticed that he was having a hard time breathing. He has left lateral chest pain that is worse with breathing. He has not had fever but does feel cold. His cough has been the same as baseline. No vomiting or diarrhea. No fall or trauma. The patient believes there may be something wrong with his lungs. He wears 2 L of oxygen all the time and has a history of COPD/emphysema. REVIEW OF SYSTEMS: See HPI for pertinent positives and negatives. A total of ten systems were reviewed and were otherwise negative. PMHx/PSHx: See Below SOCIAL HISTORY: See Below. PHYSICAL EXAM: GENERAL: Patient is in no acute distress. Thin and frail. HEENT: No acute trauma, normocephalic atraumatic, mucous membranes moist, no nasal congestion, no scleral icterus. NECK: No stridor, no adenopathy, no meningismus, trachea is midline. LUNGS: Diminished breath sounds bilaterally with an increased respiratory rate. He does have some crackles at the left midlung. HEART: Without murmurs gallops or rubs, regular rate and rhythm. Heart tones distant. Chest: Tender to the lateral left mid chest wall, no rash. ABDOMEN: Soft, nontender, bowel sounds positive, no peritonitis. EXTREMITIES: No cyanosis or edema, full range of motion of all the joints without pain or difficulty, no signs for acute trauma. NEUROLOGIC: Oriented x 3, no acute motor or sensory deficits, no focal weakness. SKIN: No rash, no jaundice, no diaphoresis. DIFFERENTIAL DIAGNOSIS: Reactive airway disease, COVID-19, pneumonia, pneumothorax, COPD, CHF, infection, cardiac ischemia, pulmonary embolism, bronchitis, musculoskeletal, gastrointestinal, as well as other pathologies. EMERGENCY DEPARTMENT COURSE/PROCEDURES: ECG: Indication was chest pain and shortness of breath. The ECG shows a sinus bradycardia with a rate of 58. There is some nonspecific ST change. There is no ST elevation, no PVCs. The QTc is 439. Continuous Cardiac Monitoring: An order was placed for continuous cardiac monitoring. The monitor shows a rate of 71 with normal sinus rhythm. Critical Care Note: I have personally spent 41 minutes of critical care time in the direct management of this patient. This includes bedside care, interpretation of diagnostic studies, and testing, discussion with consultants, patient, and family members, and other required patient management activities. This 41 minutes is in excess of all separately billable procedures. MEDICAL DECISION MAKING: There is a moderate leukocytosis which would be consistent with infection. A mild anemia was noted. There was a normal platelet count. INR was 1.8, consistent with his Coumadin use. No renal failure or significant electrolyte abnormality. Lactic acid level was slightly elevated, consistent with infection, possibly early sepsis. No worrisome liver enzyme elevation. Respiratory bio fire testing was completely negative. ECG showed a sinus bradycardia, no obvious ischemia. Cardiac enzyme testing x1 was not consistent with acute cardiac injury. Chest x-ray showed some chronic change, no obvious pneumonia, no CHF. Chest CT does not show evidence for pneumonia. The patient did appear short of breath on exam. He was not in distress though. He received IV Solu-Medrol, IV ceftriaxone, a DuoNeb, he was given IV Tylenol. I do think the patient deserves a hospital stay given his findings and presentation. I did speak with case management, I spoke with the patient, the on-call hospitalist was consulted. Past Med/Surg History Medical History BPH loc w urin obs/LUTS Chronic anticoagulation Chronic hypoxemic respiratory failure Constipation COPD (chronic obstructive pulmonary disease) COPD exacerbation COPD, very severe Dementia Diastolic heart failure Hypercoagulable state Pulmonary emphysema Pulmonary emphysema Social phobia Urinary retention Vitamin D insufficiency Surgical History History of abdominal surgery History of cataract surgery bilateral History of laparotomy Family History Mother Cardiomegaly Cardiac disorder Hypertension Father Carotid artery stenosis Coronary heart disease Diabetes Prostate cancer Myocardial infarction Sister Breast cancer Denies family history of Ovarian cancer Colorectal cancer Social History Smoking Status: Never smoker Tobacco Type: Cigarettes Age Started Using Tobacco: 18; Age Quit Using Tobacco: 64; packs per day: 1; Years Smoked: 46; Cigarettes Per Day: 20; Second Hand Exposure: No; Hx Alcohol Use: Yes Alcohol type: beer Alcohol Intake Frequency: 4 or More x per/Week Hx Substance Use: No Preferred Language: Iranian Communication Ability: Effective Visual Impairment: Limited Hearing Ability: Normal Sustainability Specialist Required: No Beliefs That Will Affect Care: None marital status: Current Living Situation: Spouse current occupational status: retired How many Children do You have: 4 Feels Safe at Home: Yes Childhood Exposure to Second-Hand Smoke: Yes caffeine: Yes Dental Care, Regularly: No Physical Activity Frequency: Does not Exercise Seatbelt Use: always Sunscreen Use: No Assistive Devices: Oxygen - Continuous Allergies Allergies Allergy/AdvReac Type Severity Reaction Status Date / Time Iodinated Contrast Media Allergy Unknown Verified 12/02/21 12:17 Home Meds Home Medications Medication Instructions Recorded Confirmed cholecalciferol (vitamin D3) 50 2,000 units PO HS 02/11/18 02/10/22 mcg (2,000 unit) capsule polyethylene glycol 3350 17 17 gm PO HS 02/11/18 02/10/22 gram/dose oral powder (Miralax) docusate sodium 100 mg capsule 100 mg PO PM PRN Constipation 07/22/19 02/10/22 (Colace) multivitamin 1 tab PO HS 09/15/20 02/10/22 buspirone 10 mg tablet 10 mg PO HS 03/23/21 02/10/22 ascorbic acid (vitamin C) 500 mg 500 mg PO HS 02/10/22 02/10/22 tablet (Vitamin C) azithromycin 250 mg tablet 250 mg PO 3XWK 02/10/22 02/10/22 fluticasone fur. 100 mcg-umeclid 1 inh inhalation HS 02/10/22 02/10/22 62.5 mcg-vilant 25 mcg inhalat.powder (Trelegy Ellipta) metoprolol succinate 200 mg 200 mg PO HS 02/10/22 02/10/22 tablet,extended release 24 hr rivastigmine 4.6 mg/24 hour 1 patch transdermal HS 02/10/22 02/10/22 transdermal patch (Exelon Patch) sertraline 50 mg tablet 50 mg PO HS 02/10/22 02/10/22 warfarin 3 mg tablet 3 mg PO HS 02/10/22 02/10/22 Previous Rx's Medication Instructions Recorded ipratropium 0.5 mg-albuterol 3 mg 3 ml inhalation DAILY PRN 03/03/21 (2.5 mg base)/3 mL nebulization shortness of breath #180 mL soln amlodipine 10 mg tablet (Norvasc) 10 mg PO HS #90 tabs 08/22/21 albuterol sulfate 90 mcg/actuation 2 puff inhalation Q6H PRN 12/07/21 aerosol inhaler Shortness Of Breath Or Wheezing #18 grams Results & Data (ED) Vital Signs Vital Signs - 24 hr 02/10/22 12:40 02/10/22 13:04 02/10/22 15:23 Temperature 36 C L Temperature Source Temporal Artery Scan Pulse Rate 71 Pulse Rate [Right Finger] 65 Respiratory Rate 18 22 Respiratory Effort / Characteristics Non-Labored Respiratory Depth Normal Respiratory Pattern Regular Blood Pressure 150/75 H Blood Pressure [Right Arm] Blood Pressure Mean 100 Blood Pressure Mean [Right Arm] Pulse Oximetry 85 L 91 95 Oxygen Delivery Method Room Air Room Air Nebulizer Oxygen Flow Rate 2 Sepsis Recent Fever Within 48 Hours No Sepsis New/Unexplained Change in Mental Status N/A Sepsis Action Taken by Nursing No Action Required Pulse Oximetry Post Tiitration 02/10/22 15:39 02/10/22 15:39 02/10/22 15:39 Temperature Temperature Source Pulse Rate Pulse Rate [Right Finger] Respiratory Rate Respiratory Effort / Characteristics Grunting Labored Respiratory Depth Respiratory Pattern Blood Pressure Blood Pressure [Right Arm] Blood Pressure Mean Blood Pressure Mean [Right Arm] Pulse Oximetry 94 94 Oxygen Delivery Method Nasal Cannula Nasal Cannula Nasal Cannula Oxygen Flow Rate 2 2 2 Sepsis Recent Fever Within 48 Hours Sepsis New/Unexplained Change in Mental Status Sepsis Action Taken by Nursing Pulse Oximetry Post Tiitration 94 02/10/22 17:10 Temperature Temperature Source Pulse Rate Pulse Rate [Right Finger] 54 L Respiratory Rate 22 Respiratory Effort / Characteristics Respiratory Depth Respiratory Pattern Blood Pressure Blood Pressure [Right Arm] 103/73 Blood Pressure Mean Blood Pressure Mean [Right Arm] 83 Pulse Oximetry 94 Oxygen Delivery Method Nasal Cannula Oxygen Flow Rate 2 Sepsis Recent Fever Within 48 Hours Sepsis New/Unexplained Change in Mental Status Sepsis Action Taken by Nursing Pulse Oximetry Post Tiitration Home Medications Current Medication List: was personally reviewed by me Laboratory Data Attestation: I reviewed the patient's lab results. Result diagrams: 02/10/22 15:59 02/10/22 15:59 Lab Results 02/10/22 02/10/22 02/10/22 Range/Units 15:14 15:59 15:59 WBC 16.61 H (4.8-10.8) K/ul RBC 4.36 L (4.63-6.08) M/uL Hgb 13.3 L (14.0-18.0) g/dl Hct 40.6 (40.1-51.0) % MCV 93.1 (80.0-100.0) fL MCH 30.5 (25.0-34.0) pg MCHC 32.8 (32.0-36.0) g/dL RDW Std Deviation 50.7 H (36.4-46.3) fL RDW Coeff of Gauri 14.7 H (11.5-14.5) % Plt Count 148 (130-400) K/uL MPV 10.9 (9.4-12.4) fL Immature Gran % (Auto) 0.5 % Neut % (Auto) 89.6 % Lymph % (Auto) 4.1 % [place] % (Auto) 5.7 % Eos % (Auto) 0.0 % Baso % (Auto) 0.1 % Neut # (Auto) 14.88 H (1.4-6.5) K/uL Lymph # (Auto) 0.68 L (1.2-3.4) K/uL [place] # (Auto) 0.94 H (0.24-0.82) K/uL Eos # (Auto) 0.00 (0-0.50) K/uL Baso # (Auto) 0.02 (0-0.2) K/uL Immature Gran # (Auto) 0.09 H (0.00-0.02) K/uL PT 18.6 H (9.0-12.0) Seconds INR 1.8 H (0.9-1.1) APTT 42.8 H (21.0-31.0) Seconds PTT Ratio 1.6 Sodium (136-145) mmol/L Potassium (3.5-5.1) mmol/L Chloride (98-107) mmol/L Carbon Dioxide (21-32) mmol/L Anion Gap (3-11) BUN (6-23) mg/dl Creatinine (0.6-1.4) mg/dl Est Cr Clr Drug Dosing ml/min Est GFR ( Amer) ml/min Est GFR (Non-Af Amer) ml/min BUN/Creatinine Ratio (10-20) Glucose (70-99(Fasting)) mg/dl Lactate (0.4-2.0) mmol/L Calcium (8.5-10.1) mg/dl Magnesium (1.7-2.4) mg/dl Total Bilirubin (0.2-1.0) mg/dl AST (13-39) U/L ALT (7-52) U/L Alkaline Phosphatase (34-104) U/L Troponin I High Sens (0-20) pg/ml Total Protein (6.0-8.3) gm/dl Albumin (3.4-5.0) gm/dl Globulin (2.5-4.0) gm/dl Albumin/Globulin Ratio (0.9-2) Adenovirus (PCR) Not Detected (NotDetected) B. pertussis DNA (PCR) Not Detected (NotDetected) B.parapertussis DNA PCR Not Detected (NotDetected) C. pneumoniae DNA (PCR) Not Detected (NotDetected) Coronavirus OC43 (PCR) Not Detected (NotDetected) Coronavirus HKU1 (PCR) Not Detected (NotDetected) Coronavirus 229E (PCR) Not Detected (NotDetected) SARS-CoV-2 (PCR) Not Detected (NotDetected) Coronavirus NL63 (PCR) Not Detected (NotDetected) Human Metapneumovir PCR Not Detected (NotDetected) Influenza Type A (PCR) Not Detected (NotDetected) Influenza Type B (PCR) Not Detected (NotDetected) M. pneumoniae (PCR) Not Detected (NotDetected) Parainfluenza 1 (PCR) Not Detected (NotDetected) Parainfluenza 2 (PCR) Not Detected (NotDetected) Parainfluenza 3 (PCR) Not Detected (NotDetected) Parainfluenza 4 (PCR) Not Detected (NotDetected) RSV (PCR) Not Detected (NotDetected) Entero/Rhino (PCR) Not Detected (NotDetected) 02/10/22 02/10/22 Range/Units 15:59 15:59 WBC (4.8-10.8) K/ul RBC (4.63-6.08) M/uL Hgb (14.0-18.0) g/dl Hct (40.1-51.0) % MCV (80.0-100.0) fL MCH (25.0-34.0) pg MCHC (32.0-36.0) g/dL RDW Std Deviation (36.4-46.3) fL RDW Coeff of Gauri (11.5-14.5) % Plt Count (130-400) K/uL MPV (9.4-12.4) fL Immature Gran % (Auto) % Neut % (Auto) % Lymph % (Auto) % [place] % (Auto) % Eos % (Auto) % Baso % (Auto) % Neut # (Auto) (1.4-6.5) K/uL Lymph # (Auto) (1.2-3.4) K/uL [place] # (Auto) (0.24-0.82) K/uL Eos # (Auto) (0-0.50) K/uL Baso # (Auto) (0-0.2) K/uL Immature Gran # (Auto) (0.00-0.02) K/uL PT (9.0-12.0) Seconds INR (0.9-1.1) APTT (21.0-31.0) Seconds PTT Ratio Sodium 138 (136-145) mmol/L Potassium 4.1 (3.5-5.1) mmol/L Chloride 104 (98-107) mmol/L Carbon Dioxide 25 (21-32) mmol/L Anion Gap 9 (3-11) BUN 27 H (6-23) mg/dl Creatinine 1.13 (0.6-1.4) mg/dl Est Cr Clr Drug Dosing 39.8 ml/min Est GFR ( Amer) 67.8 ml/min Est GFR (Non-Af Amer) 58.5 ml/min BUN/Creatinine Ratio 23.9 H (10-20) Glucose 131 H (70-99(Fasting)) mg/dl Lactate 2.1 H* (0.4-2.0) mmol/L Calcium 9.0 (8.5-10.1) mg/dl Magnesium 2.1 (1.7-2.4) mg/dl Total Bilirubin 1.1 H (0.2-1.0) mg/dl AST 19 (13-39) U/L ALT 13 (7-52) U/L Alkaline Phosphatase 79 (34-104) U/L Troponin I High Sens 12.6 (0-20) pg/ml Total Protein 6.4 (6.0-8.3) gm/dl Albumin 3.8 (3.4-5.0) gm/dl Globulin 2.6 (2.5-4.0) gm/dl Albumin/Globulin Ratio 1.5 (0.9-2) Adenovirus (PCR) (NotDetected) B. pertussis DNA (PCR) (NotDetected) B.parapertussis DNA PCR (NotDetected) C. pneumoniae DNA (PCR) (NotDetected) Coronavirus OC43 (PCR) (NotDetected) Coronavirus HKU1 (PCR) (NotDetected) Coronavirus 229E (PCR) (NotDetected) SARS-CoV-2 (PCR) (NotDetected) Coronavirus NL63 (PCR) (NotDetected) Human Metapneumovir PCR (NotDetected) Influenza Type A (PCR) (NotDetected) Influenza Type B (PCR) (NotDetected) M. pneumoniae (PCR) (NotDetected) Parainfluenza 1 (PCR) (NotDetected) Parainfluenza 2 (PCR) (NotDetected) Parainfluenza 3 (PCR) (NotDetected) Parainfluenza 4 (PCR) (NotDetected) RSV (PCR) (NotDetected) Entero/Rhino (PCR) (NotDetected) Administered Medications Ampicillin Sodium/Sulbactam Sodium 3,000 mg/ Sodium Chloride 108 mls @ 200 mls/hr IV Q6H [facility]; Protocol Stop: 02/17/22 20:59 Last Admin: 02/10/22 21:11 Dose: 200 mls/hr Documented By: PERDO Discontinued Medications Acetaminophen (Acetaminophen 1000 Mg/100 Ml Iv) 1,000 mg IV NOW STA Stop: 02/10/22 15:01 Last Admin: 02/10/22 15:25 Dose: 1,000 mg Documented By: PEDRO Albuterol (Albut/Ipratrop 3mg/0.5mg Neb 3 Ml Vial) 3 ml NEB NOW STA; Protocol Stop: 02/10/22 15:00 Last Admin: 02/10/22 15:17 Dose: 3 ml Documented By: PEDRO Ceftriaxone Sodium (Rocephin) 2,000 mg in 70 mls @ 140 mls/hr IV NOW STA Stop: 02/10/22 17:13 Last Infusion: 02/10/22 17:43 Dose: 0 mls/hr Documented By: Admin: 02/10/22 17:06 Dose: 140 mls/hr Documented By: PEDRO Methylprednisolone (Methylprednisolone 125 Mg/2 Ml Vial) 60 mg IV NOW STA Stop: 02/10/22 16:45 Last Admin: 02/10/22 17:06 Dose: 60 mg Documented By: PEDRO Imaging Data Radiologist's Impression: Chest X-Ray 02/10/22 12:49 XR chest 1V portable CLINICAL HISTORY: SOB TECHNIQUE: Single frontal radiograph of the chest was obtained. Comparison: Comparison is made to chest radiograph 09/01/2020 FINDINGS: Median sternotomy wires are unchanged. Cardiomegaly is noted. Emphysema is noted. No airspace opacity. No evidence of pleural effusion or pneumothorax. A hiatal hernia is seen. IMPRESSION: No acute abnormalities and in particular no evidence of pneumonia. Emphysema is seen. ACT 112: Negative or not required by law. Electronically signed by: Bon Jay M.D. 02/10/2022 2:[address] 02/10/22 15:26 CT chest diagnostic wo con CT DOSE: 303.05 mGy.cm HISTORY: Shortness of breath. Atypical chest pain. COPD. TECHNIQUE: Multiaxial CT images of the chest were performed without contrast. A dose lowering technique was utilized adhering to the principles of ALARA. COMPARISON: Chest CT 08/08/2019. FINDINGS: Small amount of mucoid material within the trachea and bilateral mainstem bronchi. There is also partial opacification of the bilateral lower lobe bronchi. This is most pronounced on the left. Moderate emphysema. There is a new 3 mm nodule within the left upper lobe on image 54. There is a new focal irregular density within the periphery of the left lower lobe on image 140 which measures 11 mm. There is an 8 mm nodule within the base of the left lower lobe on image 271. Stable 4 mm subpleural nodule within the right lower lobe on image 187. Stable 4 mm nodule within the right upper lobe on image 66. Small patchy areas of consolidation seen within the base of the bilateral lower lobes most pronounced on the left. This favors a pneumonia could be due to aspiration given the partial opacification of the lower lobe bronchi. No pneumothorax. There is a trace left pleural effusion. Mild bilateral gynecomastia is noted. Limited views of the upper abdomen demonstrate a normal liver, spleen, and adrenal glands. No pericardial effusion. The heart is normal in size. Normal esophagus. Mild calcified plaque within the normal caliber thoracic aorta. No mediastinal or hilar lymphadenopathy. There are poststernotomy changes. No suspicious lytic are blastic osseous lesions. IMPRESSION: 1. Small patchy bibasilar airspace opacities most pronounced within the left lower lobe. This favors a pneumonia and could be due to aspiration given the partial opacification of the lower lobe bronchi. 2. Trace left pleural effusion. 3. Moderate emphysema. 4. There is an 11 mm focal irregular density within the left lower lobe as described above which is new from the prior study. This favors a small focus of inflammatory/infectious change. However, 6 month follow-up recommended to ensure resolution/stability. 5. There is an 8 mm nodule within the base of the left lower lobe which may correspond to the 5 mm nodule seen on the prior study. This also requires six- month follow-up to ensure stability. 6. Additional stable subcentimeter pulmonary nodules as described above. ACT 112: Positive. There are findings on this exam that require communication between the performing entity and the patient following Patient Test Result Information Act ([place] Act 112) guidelines. Electronically signed by: Ramu Alexander M.D. 02/10/2022 4:25 PM Discharge Plan Visit Data Chief Complaint: Respiratory Problems Stated Complaint: TROUBLE BREATHING ED Provider: Xiang Veloz Discharge Problem: SOB (shortness of breath), Pneumonia, Left-sided chest pain, COPD exacerbation Patient Disposition: Admitted As Inpatient Condition: Fair Discharge Instructions Interventions: ED Discharge Assessment Last Done: 02/10/22 19:58
--- NOTE | 2022-02-10 16:03 | Electrocardiogram Report ---
Test Reason : Blood Pressure : / mmHG Vent. Rate : 058 BPM Atrial Rate : 058 BPM P-R Int : 140 ms QRS Dur : 090 ms QT Int : 448 ms P-R-T Axes : 074 060 070 degrees QTc Int : 439 ms Poor data quality, interpretation may be adversely affected Sinus bradycardia Possible Left atrial enlargement Nonspecific ST abnormality Abnormal ECG When compared with ECG of 05-AUG-2019 12:26, Premature ventricular complexes are no longer Present Confirmed by Nicholas Petersen ([id number]) on 02/10/2022 4:02:53 PM Referred By: Confirmed By:Nicholas Petersen
[2022-02-10 16:20] LABS: Basophils # (auto) 0.02 K/uL (0-0.2); Basophils % (auto) 0.1 %; Hematocrit (blood only) 40.6 % (40.1-51.0); Hemoglobin 13.3 g/dl (14.0-18.0); Immature Granulocytes # (auto) 0.09 K/uL (0.00-0.02); Immature Granulocytes % (auto) 0.5 %; Lymphocytes # (auto) 0.68 K/uL (1.2-3.4); Lymphocytes % (auto) 4.1 %; Mean Corpuscular Hemoglobin 30.5 pg (25.0-34.0); Mean Corpuscular Hgb Conc 32.8 g/dL (32.0-36.0); Mean Corpuscular Volume 93.1 fL (80.0-100.0); Mean Platelet Volume 10.9 fL (9.4-12.4); Monocytes # (auto) 0.94 K/uL (0.24-0.82); Monocytes % (auto) 5.7 %; Neutrophils # (auto) 14.88 K/uL (1.4-6.5); Neutrophils % (auto) 89.6 %; Platelet Count 148 K/uL (130-400); RDW Coefficient of Variation 14.7 % (11.5-14.5); RDW Standard Deviation 50.7 fL (36.4-46.3); Red Blood Count 4.36 M/uL (4.63-6.08); White Blood Count 16.61 K/ul (4.8-10.8)
--- NOTE | 2022-02-10 16:27 | CT Scan Report ---
CT chest diagnostic wo con CT DOSE: 303.05 mGy.cm HISTORY: Shortness of breath. Atypical chest pain. COPD. TECHNIQUE: Multiaxial CT images of the chest were performed without contrast. A dose lowering techni que was utilized adhering to the principles of ALARA. COMPARISON: Chest CT 08/08/2019. FINDINGS: Small amount of mucoid material within the trachea and bilateral mainstem bronchi. There is also partial opacification of the bilateral lower lobe bronchi. This is most pronounced on the left. Moderate emphysema. There is a new 3 mm nodule within the left upper lobe on image 54. There is a ne w focal irregular density within the periphery of the left lower lobe on image 140 which measures 11 mm. There is an 8 mm nodule within the base of the left lower lobe on image 271. Stable 4 mm subpleur al nodule within the right lower lobe on image 187. Stable 4 mm nodule within the right upper lobe on image 66. Small patchy areas of consolidation seen within the base of the bilateral lower lobes most pronounced on the left. This favors a pneumonia could be due to aspiration given the partial opacifi cation of the lower lobe bronchi. No pneumothorax. There is a trace left pleural effusion. Mild bilat eral gynecomastia is noted. Limited views of the upper abdomen demonstrate a normal liver, spleen, an d adrenal glands. No pericardial effusion. The heart is normal in size. Normal esophagus. Mild calcif ied plaque within the normal caliber thoracic aorta. No mediastinal or hilar lymphadenopathy. There a re poststernotomy changes. No suspicious lytic are blastic osseous lesions. IMPRESSION: 1. Small patchy bibasilar airspace opacities most pronounced within the left lower lobe. This favors a pneumonia and could be due to aspiration given the partial opacification of the lower lobe bronchi. 2. Trace left pleural effusion. 3. Moderate emphysema. 4. There is an 11 mm focal irregular density within the left lower lobe as described above which is n ew from the prior study. This favors a small focus of inflammatory/infectious change. However, 6 adalgisa h follow-up recommended to ensure resolution/stability. 5. There is an 8 mm nodule within the base of the left lower lobe which may correspond to the 5 mm no dule seen on the prior study. This also requires six-month follow-up to ensure stability. 6. Additional stable subcentimeter pulmonary nodules as described above. ACT 112: Positive. There are findings on this exam that require communication between the performing entity and the patient following Patient Test Result Information Act ([place] Act 112) guidelines. Electronically signed by: Ramu Alexander M.D. 02/10/2022 4:25 PM
[2022-02-10 16:31] LABS: INR 1.8 (0.9-1.1); Partial Thromboplastin Ratio 1.6; Partial Thromboplastin Time 42.8 Seconds (21.0-31.0); Prothrombin Time 18.6 Seconds (9.0-12.0)
[2022-02-10 16:33] LABS: Adenovirus PCR Not Detected (NotDetected); Bordetella parapertussis PCR Not Detected (NotDetected); Bordetella pertussis PCR Not Detected (NotDetected); Chlamydia pneumoniae PCR Not Detected (NotDetected); Coronavirus 229E PCR Not Detected (NotDetected); Coronavirus CoV-2 (COVID19)PCR Not Detected (NotDetected); Coronavirus HKU1 PCR Not Detected (NotDetected); Coronavirus NL63 PCR Not Detected (NotDetected); Coronavirus OC43PCR Not Detected (NotDetected); Human Metapneumovirus PCR Not Detected (NotDetected); Influenza A PCR Not Detected (NotDetected); Influenza B PCR Not Detected (NotDetected); Mycoplasma pneumoniae PCR Not Detected (NotDetected); Parainfluenza Virus 1 PCR Not Detected (NotDetected); Parainfluenza Virus 2 PCR Not Detected (NotDetected); Parainfluenza Virus 3 PCR Not Detected (NotDetected); Parainfluenza Virus 4 PCR Not Detected (NotDetected); Respiratory Syncytial VirusPCR Not Detected (NotDetected); Rhinovirus/Enterovirus PCR Not Detected (NotDetected)
[2022-02-10] MEDS ORDERED: methylPREDNISolone 125 MG/2 ML VIAL IV STA (16:44)
[2022-02-10] MEDS ORDERED: cefTRIAXone SODIUM 2,000 MG/70 ML BAG IV STA (16:44)
[2022-02-10 16:56] LABS: Troponin I High Sensitivity 12.6 pg/ml (0-20)
[2022-02-10 17:02] LABS: Albumin Globulin Ratio 1.5 (0.9-2); Albumin Level 3.8 gm/dl (3.4-5.0); BUN Creatinine Ratio 23.9 (10-20); Bilirubin,Total 1.1 mg/dl (0.2-1.0); Creatinine Clr Calc Pharmacy 39.8 ml/min; Est GFR (African American) 67.8 ml/min; Est GFR (Non-African American) 58.5 ml/min; Globulin 2.6 gm/dl (2.5-4.0); Magnesium 2.1 mg/dl (1.7-2.4); Potassium 4.1 mmol/L (3.5-5.1); Total Protein 6.4 gm/dl (6.0-8.3)
--- NOTE | 2022-02-10 17:05 | History & Physical Report ---
Date of Service February 10, 2022 Assessment & Plan (1) Pneumonia: Plan: Acute hypoxic respiratory failure with shortness of breath, chest discomfort; suspect pneumonia EKG sinus bradycardia, no ST segment abnormalities greater than 1 mm High-sensitivity troponin normal on admission CT with bibasilar but left greater than right opacities consistent with pneumonia and concerning for aspiration Received ceftriaxone on admission, converted to Unasyn for anaerobic coverage Patient on azithromycin 3 times weekly for COPD, continue Procalcitonin pending Bio fire negative, COVID-negative Methylpred 40 twice daily, received 60 mg on arrival to ER Flutter valve, inspiratory spirometer Cannot definitively rule out PE as source of left-sided pain based on unenhanced CT, however patient is on warfarin with no tachycardia and maintaining baseline oxygen levels while in the room CAD with history of CABG, L chest pain x1 day Suspect with cough, PNA above - Cardiac rule out. Trops overnight. EKG as noted Troponins trend every 6 hours and 2-hour Continue metoprolol Continue statin Patient was previously on aspirin, this was discontinued for concern of bleeding risk when his warfarin was started. 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 Continue Trelegy/formulary equivalent DuoNebs as needed Pneumonia/acute on chronic exacerbation management as noted BiPAP nightly, patient reportedly on ASV at home Hypertension Metoprolol as noted Continue amlodipine 10 mg nightly Depression/anxiety Continue sertraline BuSpar 5 mg every 6 hours as needed Dementia May continue rivastigmine patch if brought in Delirium precautions DVT prophylaxis: Anticoagulated Diet: Heart healthy, low-salt Disposition: Medical with telemetry while on cardiac rule out CODE STATUS: Discussed at bedside with patient and family, full code and family understands he would not want prolonged ventilation but if a picture of success and CPR was to be, and consistent with patient's goals/quality of life family would make that determination after efforts were made 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 He is a chronic baseline oxygen requirement of 2 L, feels his breathing has worsened in the last 2 days and is now associated with left- sided chest pain. On ER evaluation he has a leukocytosis to 16 with neutrophilic predominance, hemoglobin 13.3, INR is 1.8, high-sensitivity troponin is 12.6, bio fire is negative, EKG shows sinus bradycardia to a rate of [address] segment abnormalities >1mm, and no T wave inversions. He is on 2 L nasal cannula satting at 94%. CAT scan of the chest shows bibasilar but predominantly left lower lobe opacities consistent with pneumonia, with concern for aspiration. New 11 mm irregular density appreciated recommended for 6-month follow-up, additional 8 mm nodule enlarged from prior size of 5 mm appreciated requiring 6- month follow-up. Other stable pulmonary nodules unchanged. Sodium is normal, potassium is normal, creatinine is normal baseline and admitting creatinine is 1.13; age-adjusted clearance approximately 40. Magnesium is normal. 8:30-9pm last night developed shortness of breath and some L sided chest pain worse when laying in certain positions. Pain was worse this AM, hurt when he coughs, and worse when trying to get dressed. No fevers, chills, or sweats. Otherwise normal 2 days. No diarrhea or constipation. NO abdominal pain. No change in wheezing. Coughs up clear phlegm intermittently, no recent change. Uses [facility] at [facility]. used rescue inhaler at home, not sure if it helped. Did not try nebulizer. Chest pain has completely resolved. 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 Never needed plaavix. Medical History: Reviewed Medications: Reviewed Surgical History: Reviewed Allergies: Reviewed Social History: No current tobacco use. Former smoker. EtoH few 6 packs per week, usually 2-3 per day. Has gone 1-2 days without withdrawl sx. Last drink >2 days ago. Code Status: Full Code ASV/BiPAP at home Allergies Allergy/AdvReac Type Severity Reaction Status Date / Time Iodinated Contrast Media Allergy Unknown Verified 12/02/21 12:17 Home Medications Medication Instructions Recorded Confirmed Type cholecalciferol (vitamin D3) 50 2,000 units PO HS 02/11/18 02/10/22 History mcg (2,000 unit) capsule polyethylene glycol 3350 17 17 gm PO HS 02/11/18 02/10/22 History gram/dose oral powder (Miralax) docusate sodium 100 mg capsule 100 mg PO PM PRN Constipation 07/22/19 02/10/22 History (Colace) multivitamin 1 tab PO DAILY 09/15/20 02/10/22 History ipratropium 0.5 mg-albuterol 3 mg 3 ml inhalation DAILY PRN 03/03/21 02/10/22 Rx (2.5 mg base)/3 mL nebulization shortness of breath #180 mL soln buspirone 10 mg tablet 5 - 10 mg PO Q6H PRN anxiety 03/23/21 02/10/22 History amlodipine 10 mg tablet (Norvasc) 10 mg PO HS #90 tabs 08/22/21 02/10/22 Rx albuterol sulfate 90 mcg/actuation 2 puff inhalation Q6H PRN 12/07/21 02/10/22 Rx aerosol inhaler Shortness Of Breath Or Wheezing #18 grams ascorbic acid (vitamin C) 500 mg 500 mg PO HS 02/10/22 02/10/22 History tablet (Vitamin C) azithromycin 250 mg tablet 250 mg PO 3XWK 02/10/22 02/10/22 History fluticasone fur. 100 mcg-umeclid 1 inh inhalation HS 02/10/22 02/10/22 History 62.5 mcg-vilant 25 mcg inhalat.powder (Trelegy Ellipta) metoprolol succinate 200 mg 200 mg PO QAM 02/10/22 02/10/22 History tablet,extended release 24 hr rivastigmine 4.6 mg/24 hour 1 patch transdermal HS 02/10/22 02/10/22 History transdermal patch (Exelon Patch) sertraline 50 mg tablet 50 mg PO DAILY 02/10/22 02/10/22 History warfarin 3 mg tablet 3 mg PO DAILY 02/10/22 02/10/22 History Past Med/Surg History Medical History BPH loc w urin obs/LUTS Chronic anticoagulation Chronic hypoxemic respiratory failure Constipation COPD (chronic obstructive pulmonary disease) COPD exacerbation COPD, very severe Dementia Diastolic heart failure Hypercoagulable state Pulmonary emphysema Pulmonary emphysema Social phobia Urinary retention Vitamin D insufficiency Surgical History History of abdominal surgery History of cataract surgery bilateral History of laparotomy Family History Mother Cardiomegaly Cardiac disorder Hypertension Father Carotid artery stenosis Coronary heart disease Diabetes Prostate cancer Myocardial infarction Sister Breast cancer Denies family history of Ovarian cancer Colorectal cancer Social History Smoking Status: Never smoker Tobacco Type: Cigarettes Age Started Using Tobacco: 18; Age Quit Using Tobacco: 64; packs per day: 1; Years Smoked: 46; Cigarettes Per Day: 20; Second Hand Exposure: No; Hx Alcohol Use: Yes Alcohol type: beer Alcohol Intake Frequency: 4 or More x per/Week Hx Substance Use: No Preferred Language: Kinyarwanda Communication Ability: Effective Visual Impairment: Limited Hearing Ability: Normal [employer] Required: No Beliefs That Will Affect Care: None marital status: Current Living Situation: Spouse current occupational status: retired How many Children do You have: 4 Feels Safe at Home: Yes Childhood Exposure to Second-Hand Smoke: Yes caffeine: Yes Dental Care, Regularly: No Physical Activity Frequency: Does not Exercise Seatbelt Use: always Sunscreen Use: No Assistive Devices: Oxygen - Continuous Review of Systems Review of Systems: All systems reviewed & are unremarkable except as noted in Subjective Physical Exam Physical Exam: General: A&O to name and place, not date. NAD. Cooperative. HEENT: Atraumatic, normocephalic. PERLAA Pulm: Bibasilar crackles, otherwise CTAB A&P. -wheezes, -rales, -rhonchi. Symmetrical chest rise. No increased work of breathing. No respiratory distress. Cardiac: RRR, -mrg. Radial pulses intact and symmetrical. Abdominal: Nontender, nondistended, soft. BS present. Ext: Warm, dry. No edema Results & Data Results & Data ([facility]) Vital Signs (Past 12 Hours) Vital Signs Temp Pulse Pulse Resp BP Pulse Ox O2 Del Method 02/10/22 15:39 94 Nasal Cannula 02/10/22 15:39 Nasal Cannula 02/10/22 15:39 94 Nasal Cannula 02/10/22 15:23 65 22 95 Nebulizer 02/10/22 13:04 91 Room Air 02/10/22 12:40 36 C L 71 18 150/75 H 85 L Room Air O2 Flow Rate 02/10/22 15:39 2 02/10/22 15:39 2 02/10/22 15:39 2 02/10/22 15:23 2 02/10/22 13:04 02/10/22 12:40 PG Care Time/CCT Total # of Minutes Spent Total Time Spent with Patient: Total time spent is greater than 50% in coordination of care (as documented) at patient's floor/unit and/or counseling patient: Coding Level of Care Code 15073 Initial Inpt Care Lvl 2 Diagnoses Pneumonia J18.9 COPD with emphysema J43.9 Chronic respiratory failure with hypoxia J96.11 BPH loc w urin obs/LUTS N40.1 Diastolic heart failure I50.30 Depression due to physical illness F06.31 Dementia F03.90 Hypertension I10
[2022-02-10] MEDS ORDERED: MAGNESIUM HYDROXIDE SUSP 30 ML UDC PO PRN (19:57)
[2022-02-10] MEDS ORDERED: DOCUSATE SODIUM 100 MG CAP PO PRN (19:57)
[2022-02-10] MEDS ORDERED: ALBUTEROL HFA 8 GM INHALER INH PRN (19:57)
[2022-02-10] MEDS ORDERED: ACETAMINOPHEN 325 MG TAB PO PRN (19:57)
[2022-02-10] MEDS ORDERED: ALBUT/IPRATROP 3MG/0.5MG NEB 3 ML VIAL NEB PRN (19:57)
[2022-02-10] MEDS ORDERED: ONDANSETRON INJ 2 MG/ML 2 ML VIAL IV PRN (19:57)
[2022-02-10] MEDS ORDERED: LORazepam 0.5 MG TAB PO PRN (19:57)
[2022-02-10] MEDS ORDERED: methylPREDNISolone 40 MG in SYRINGE 0 ML IV SCH (20:00)
[2022-02-10 20:45] LABS: Base Excess VBG 2.8 mEq/L; HCO3 VBG 29 mmol/L; Oxygen Saturation VBG < 60.0 %; PCO2 VBG 47 mmHg (38-50); PO2 VBG 25 mmHg; pH VBG 7.39 (7.36-7.41)
[2022-02-10] MEDS ORDERED: methylPREDNISolone 1000 MG/16 ML IV SCH (21:00)
[2022-02-10] MEDS ORDERED: AZITHROMYCIN 250 MG TAB PO SCH (21:00)
[2022-02-10] MEDS: AMPICILLIN/SULBACTAM SOD 3,000 MG in 0.9 % SODIUM CHLORIDE 100 ML IV SCH (21:11)
[2022-02-10] MEDS: POLYETHYLENE (MIRALAX) 17 GM PACK PO SCH (22:44)
[2022-02-10] MEDS: SIMVASTATIN 10 MG TAB PO SCH (22:44)
[2022-02-10] MEDS: CHOLECALCIFEROL 1,000 UNITS 25 MCG TAB PO SCH (22:44)
[2022-02-10] MEDS: ASCORBIC ACID 500 MG TAB PO SCH (22:44)
[2022-02-10] MEDS: methylPREDNISolone 40 MG in SYRINGE 0 ML IV SCH (22:44)
[2022-02-10] MEDS: amLODIPine BESYLATE 5 MG TAB PO SCH (22:49)
[2022-02-11] MEDS: AMPICILLIN/SULBACTAM SOD 3,000 MG in 0.9 % SODIUM CHLORIDE 100 ML IV SCH ×4 (04:24→20:49)
[2022-02-11 07:41] LABS: Hematocrit (blood only) 38.6 % (40.1-51.0); Hemoglobin 12.9 g/dl (14.0-18.0); Mean Corpuscular Hemoglobin 30.8 pg (25.0-34.0); Mean Corpuscular Hgb Conc 33.4 g/dL (32.0-36.0); Mean Corpuscular Volume 92.1 fL (80.0-100.0); Mean Platelet Volume 10.9 fL (9.4-12.4); Platelet Count 144 K/uL (130-400); RDW Standard Deviation 50.4 fL (36.4-46.3); Red Blood Count 4.19 M/uL (4.63-6.08); White Blood Count 13.89 K/ul (4.8-10.8)
[2022-02-11 07:55] LABS: INR 2.1 (0.9-1.1); Prothrombin Time 21.1 Seconds (9.0-12.0)
[2022-02-11 08:03] LABS: Basophils # (auto) 0.01 K/uL (0-0.2); Basophils % (auto) 0.1 %; Immature Granulocytes # (auto) 0.18 K/uL (0.00-0.02); Immature Granulocytes % (auto) 1.3 %; Lymphocytes # (auto) 0.49 K/uL (1.2-3.4); Lymphocytes % (auto) 3.5 %; Monocytes # (auto) 0.26 K/uL (0.24-0.82); Monocytes % (auto) 1.9 %; Neutrophils # (auto) 12.95 K/uL (1.4-6.5); Neutrophils % (auto) 93.2 %
[2022-02-11 08:08] LABS: BUN Creatinine Ratio 27.1 (10-20); Est GFR (African American) 72.5 ml/min; Est GFR (Non-African American) 62.5 ml/min; Potassium 3.6 mmol/L (3.5-5.1)
[2022-02-11] MEDS: FLUTICASONE FUROATE 100MCG 14 PUFFS/INHALER INH SCH (08:59)
[2022-02-11] MEDS: busPIRone 5 MG TAB PO PRN (09:00)
[2022-02-11] MEDS ORDERED: NON-FORMULARY MEDICATION (Fluticasone-Umeclidin-Vilanter [Trelegy Ellipta] 100-62.5-25 mcg INH SCH (09:00)
[2022-02-11] MEDS: SERTRALINE HCL 50 MG TABLET PO SCH (09:00)
[2022-02-11] MEDS: UMECLIDINIUM/VILANTEROL 62.5/25MCG 7 PUFFS/INHALER INH SCH (09:00)
[2022-02-11] MEDS: MULTIVITAMIN TAB PO SCH (09:00)
[2022-02-11] MEDS: METOPROLOL SUCC 50MG EXT REL TAB PO SCH (09:01)
[2022-02-11] MEDS: methylPREDNISolone 40 MG in SYRINGE 0 ML IV SCH (10:21)
[2022-02-11] MEDS: DOXYCYCLINE HYCLATE 100 MG CAP PO SCH ×2 (13:18→20:48)
--- NOTE | 2022-02-11 13:44 | Hospitalist Progress Note ---
Date of Service February 11, 2022 Assessment & Plan (1) Pneumonia: Plan: CT with bibasilar but left greater than right opacities consistent with pneumonia and concerning for aspiration Received ceftriaxone on admission, converted to Unasyn for anaerobic coverage, will add doxycycline for atypical coverage speech eval due to concern for aspirations Procalcitonin negative Bio fire negative, COVID-negative Flutter valve, inspiratory spirometer (2) COPD with emphysema: Plan: Will reduce Solu-medrol to 40mg IV daily as not significantly wheezing on exam and good b/l air entry with baseline O2 requirement Duonebs QID (3) Chronic respiratory failure with hypoxia: Plan: Continue Trelegy/formulary equivalent DuoNebs as needed Pneumonia/acute on chronic exacerbation management as noted BiPAP nightly, patient reportedly on ASV at home (4) BPH loc w urin obs/LUTS: (5) Diastolic heart failure: (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 Trops overnight. EKG as noted Troponins trend every 6 hours and 2-hour Continue metoprolol Continue statin Patient was previously on aspirin, this was discontinued for concern of bleeding risk when his warfarin was started. Has never been on Plavix Plan DVT prophylaxis: Anticoagulated Diet: Heart healthy, low-salt Disposition: stable for transfer to med/surg CODE STATUS: Discussed at bedside with patient and family, full code and family understands he would not want prolonged ventilation but if a picture of success and CPR was to be, and consistent with patient's goals/quality of life family would make that determination after efforts were made Admission and Anticipated Discharge Date Admission Date: February 10, 2022 Subjective Patient appears pleasantly confused. No acute concerns or questions but cannot tell me much about his diagnosis or why he is here. just came in and feels she cannot comment on his confusions or shortness of breath other than he looks much improved from admission. Review of Systems Review of Systems: All systems reviewed & are unremarkable except as noted in Subjective Physical Exam Constitutional: WD/WN, vitals as above + frail appearing; no acute distress Respiratory: normal respiratory effort Auscultation: + crackles (bibasal); breath sounds present, no diminished lung sounds, no rales, no rhonchi and no wheezes Cardiovascular: Rate/Rhythm: regular rhythm and + bradycardic Heart Sounds: no murmur Extremities: normal capillary refill; no calf tenderness and no pedal edema Gastrointestinal (Abdomen): normal bowel sounds, soft, nontender, no hepatosplenomegaly Neurologic: moves all extremities, awake and + confused Psychiatric: Orientation: alert and oriented to person; + not oriented to place and + not oriented to time Results & Data Results & Data ([facility]) Vital Signs (Past 12 Hours) Vital Signs Temp Pulse Pulse Resp BP BP Pulse Ox 02/11/22 12:00 36.8 C 66 20 138/73 96 02/11/22 09:58 59 L 02/11/22 09:19 02/11/22 06:44 36.8 C 69 18 126/71 94 02/11/22 04:00 63 02/11/22 04:01 36.3 C L 65 15 120/60 96 02/11/22 02:52 60 18 112/47 L 99 02/11/22 02:00 67 18 112/47 L 97 O2 Del Method O2 Flow Rate 02/11/22 12:00 02/11/22 09:58 02/11/22 09:19 Nasal Cannula 2 02/11/22 06:44 Nasal Cannula 2 02/11/22 04:00 02/11/22 04:01 Nasal Cannula 2 02/11/22 02:52 Nasal Cannula 2 02/11/22 02:00 Nasal Cannula 2 PG Care Time/CCT Total # of Minutes Spent Total Time Spent with Patient: Total time spent is greater than 50% in coordination of care (as documented) at patient's floor/unit and/or counseling patient: Coding Level of Care Code 26179 Subseq Hosp Care Lvl 2 Diagnoses Pneumonia J18.9 COPD with emphysema J43.9 Chronic respiratory failure with hypoxia J96.11 BPH loc w urin obs/LUTS N40.1 Diastolic heart failure I50.30 Depression due to physical illness F06.31 Dementia F03.90 Hypertension I10 Coronary artery disease I25.10
[2022-02-11] MEDS: ALBUT/IPRATROP 3MG/0.5MG NEB 3 ML VIAL NEB SCH ×2 (15:20→19:47)
[2022-02-11] MEDS: WARFARIN SOD 3 MG TAB PO SCH (15:45)
[2022-02-11] MEDS: ASCORBIC ACID 500 MG TAB PO SCH (20:48)
[2022-02-11] MEDS: CHOLECALCIFEROL 1,000 UNITS 25 MCG TAB PO SCH (20:48)
[2022-02-11] MEDS: SIMVASTATIN 10 MG TAB PO SCH (20:48)
[2022-02-11] MEDS: POLYETHYLENE (MIRALAX) 17 GM PACK PO SCH (20:49)
[2022-02-11] MEDS: amLODIPine BESYLATE 5 MG TAB PO SCH (20:49)
[2022-02-12] MEDS: AMPICILLIN/SULBACTAM SOD 3,000 MG in 0.9 % SODIUM CHLORIDE 100 ML IV SCH ×4 (02:49→22:24)
[2022-02-12] MEDS: ALBUT/IPRATROP 3MG/0.5MG NEB 3 ML VIAL NEB SCH ×4 (07:16→19:14)
[2022-02-12] MEDS: methylPREDNISolone 40 MG in SYRINGE 0 ML IV SCH (08:07)
[2022-02-12] MEDS: SERTRALINE HCL 50 MG TABLET PO SCH (08:08)
[2022-02-12] MEDS: DOXYCYCLINE HYCLATE 100 MG CAP PO SCH ×2 (08:08→22:25)
[2022-02-12] MEDS: busPIRone 5 MG TAB PO PRN (08:08)
[2022-02-12] MEDS: MULTIVITAMIN TAB PO SCH (08:08)
[2022-02-12] MEDS: METOPROLOL SUCC 50MG EXT REL TAB PO SCH (08:09)
[2022-02-12] MEDS: UMECLIDINIUM/VILANTEROL 62.5/25MCG 7 PUFFS/INHALER INH SCH (08:09)
[2022-02-12] MEDS: FLUTICASONE FUROATE 100MCG 14 PUFFS/INHALER INH SCH (08:10)
[2022-02-12] MEDS ORDERED: POTASSIUM CHLORIDE CRTAB 20 MEQ TABCR PO STA (13:23)
[2022-02-12] MEDS: WARFARIN SOD 3 MG TAB PO SCH (16:29)
--- NOTE | 2022-02-12 19:00 | Hospitalist Progress Note ---
Date of Service February 12, 2022 Assessment & Plan (1) Pneumonia: Plan: CT with bibasilar but left greater than right opacities consistent with pneumonia and concerning for aspiration Received ceftriaxone on admission, converted to Unasyn for anaerobic coverage, will add doxycycline for atypical coverage, continue IV while inpatient speech eval - planning on FEES tomorrow Procalcitonin negative Bio fire negative, COVID-negative Flutter valve, inspiratory spirometer (2) COPD with emphysema: Plan: Will reduce Solu-medrol to 40mg IV daily as not significantly wheezing on exam and good b/l air entry with baseline O2 requirement Duonebs QID Continue on hospital formulary equivalent of Trelegy Ellipta (3) Chronic respiratory failure with hypoxia: Plan: Continue Trelegy/formulary equivalent DuoNebs as needed Pneumonia/acute on chronic exacerbation management as noted BiPAP nightly, patient reportedly on ASV at home (4) BPH loc w urin obs/LUTS: (5) Diastolic heart failure: (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 Has never been on Plavix Plan DVT prophylaxis: continue warfarin, INR 2.1 Diet: Heart healthy, low-salt Disposition: continue on med/surg CODE STATUS: Discussed at bedside with patient and family, full code and family understands he would not want prolonged ventilation but if a picture of success and CPR was to be, and consistent with patient's goals/quality of life family would make that determination after efforts were made Admission and Anticipated Discharge Date Admission Date: February 10, 2022 Subjective Patient reports feeling at his baseline. Denies any new shortness of breath or cough. Speech planning on FEES tomorrow. PT noted probable discharge home but would like to see improvement as inpatient first. and daughter at bedside feel he is much more confused than normal but happy for him to be at home when ready for discharge as they feel his confusion will improve at home. Note his shortness of breath is back to basline and even a month ago he was short of breath on light exertion or even when eating. Patient reports his left sided chest pain is completely resolved. Review of Systems Review of Systems: All systems reviewed & are unremarkable except as noted in Subjective Physical Exam Constitutional: WD/WN, vitals as above + frail appearing; no acute distress Respiratory: normal respiratory effort Auscultation: + crackles (bibasal); breath sounds present, no diminished lung sounds, no rales, no rhonchi and no wheezes Cardiovascular: Rate/Rhythm: regular rhythm and + bradycardic Heart Sounds: no murmur Extremities: normal capillary refill; no calf tenderness and no pedal edema Gastrointestinal (Abdomen): normal bowel sounds, soft, nontender, no hepatosplenomegaly Neurologic: moves all extremities, awake and + confused Psychiatric: Orientation: alert and oriented to person; + not oriented to place and + not oriented to time Results & Data Results & Data ([facility]) Vital Signs (Past 12 Hours) Vital Signs Temp Pulse Resp BP Pulse Ox Pulse Ox O2 Del Method 02/12/22 14:32 93 02/12/22 14:10 51 L 24 96 Nasal Cannula 02/12/22 12:00 37.0 C 77 16 128/68 96 02/12/22 11:49 85 L 02/12/22 11:04 67 16 97 Nasal Cannula 02/12/22 08:00 36.5 C 67 18 105/79 95 02/12/22 07:46 Nasal Cannula 02/12/22 07:16 67 16 96 Nasal Cannula O2 Flow Rate O2 Flow Rate 02/12/22 14:32 02/12/22 14:10 2 02/12/22 12:00 02/12/22 11:49 2 02/12/22 11:04 2 02/12/22 08:00 02/12/22 07:46 2 02/12/22 07:16 3 PG Care Time/CCT Total # of Minutes Spent Total Time Spent with Patient: Total time spent is greater than 50% in coordination of care (as documented) at patient's floor/unit and/or counseling patient: Coding Level of Care Code 06355 Subseq Hosp Care Lvl 2 Diagnoses Pneumonia J18.9 COPD with emphysema J43.9 Chronic respiratory failure with hypoxia J96.11 BPH loc w urin obs/LUTS N40.1 Diastolic heart failure I50.30 Depression due to physical illness F06.31 Dementia F03.90 Hypertension I10 Coronary artery disease I25.10
[2022-02-12] MEDS ORDERED: RIVASTIGMINE PATCH TD SCH (21:00)
[2022-02-12] MEDS: SIMVASTATIN 10 MG TAB PO SCH (22:24)
[2022-02-12] MEDS: ASCORBIC ACID 500 MG TAB PO SCH (22:25)
[2022-02-12] MEDS: amLODIPine BESYLATE 5 MG TAB PO SCH (22:25)
[2022-02-12] MEDS: CHOLECALCIFEROL 1,000 UNITS 25 MCG TAB PO SCH (22:25)
[2022-02-12] MEDS: POLYETHYLENE (MIRALAX) 17 GM PACK PO SCH (22:25)
[2022-02-13] MEDS: AMPICILLIN/SULBACTAM SOD 3,000 MG in 0.9 % SODIUM CHLORIDE 100 ML IV SCH ×3 (03:05→14:52)
[2022-02-13 05:56] LABS: Basophils # (auto) 0.02 K/uL (0-0.2); Basophils % (auto) 0.1 %; Hematocrit (blood only) 38.1 % (40.1-51.0); Hemoglobin 12.7 g/dl (14.0-18.0); Immature Granulocytes # (auto) 0.14 K/uL (0.00-0.02); Immature Granulocytes % (auto) 0.9 %; Lymphocytes % (auto) 5.3 %; Mean Corpuscular Hemoglobin 30.8 pg (25.0-34.0); Mean Corpuscular Hgb Conc 33.3 g/dL (32.0-36.0); Mean Corpuscular Volume 92.3 fL (80.0-100.0); Monocytes # (auto) 0.94 K/uL (0.24-0.82); Monocytes % (auto) 6.2 %; Neutrophils % (auto) 87.5 %; Platelet Count 183 K/uL (130-400); RDW Coefficient of Variation 15.3 % (11.5-14.5); RDW Standard Deviation 51.8 fL (36.4-46.3); Red Blood Count 4.13 M/uL (4.63-6.08)
[2022-02-13 06:16] LABS: INR 3.5 (0.9-1.1); Prothrombin Time 35.2 Seconds (9.0-12.0)
[2022-02-13 06:18] LABS: BUN Creatinine Ratio 29.8 (10-20); Creatinine Clr Calc Pharmacy 37.5 ml/min; Est GFR (African American) 60.6 ml/min; Est GFR (Non-African American) 52.3 ml/min; Potassium 4.1 mmol/L (3.5-5.1)
[2022-02-13] MEDS: ALBUT/IPRATROP 3MG/0.5MG NEB 3 ML VIAL NEB SCH ×3 (07:37→14:45)
[2022-02-13] MEDS: FLUTICASONE FUROATE 100MCG 14 PUFFS/INHALER INH SCH (09:06)
[2022-02-13] MEDS: DOXYCYCLINE HYCLATE 100 MG CAP PO SCH (09:06)
[2022-02-13] MEDS: methylPREDNISolone 40 MG in SYRINGE 0 ML IV SCH (09:11)
[2022-02-13] MEDS: METOPROLOL SUCC 50MG EXT REL TAB PO SCH (09:13)
[2022-02-13] MEDS: MULTIVITAMIN TAB PO SCH (09:14)
[2022-02-13] MEDS: SERTRALINE HCL 50 MG TABLET PO SCH (09:15)
[2022-02-13] MEDS: UMECLIDINIUM/VILANTEROL 62.5/25MCG 7 PUFFS/INHALER INH SCH (09:17)
--- NOTE | 2022-02-13 13:12 | Electrocardiogram Report ---
Test Reason : Blood Pressure : / mmHG Vent. Rate : 071 BPM Atrial Rate : 071 BPM P-R Int : 132 ms QRS Dur : 090 ms QT Int : 436 ms P-R-T Axes : 062 077 006 degrees QTc Int : 473 ms Sinus rhythm with frequent Premature ventricular complexes in a pattern of bigeminy Cannot rule out Inferior infarct , age undetermined Abnormal ECG When compared with ECG of 10-FEB-2022 12:56, Premature ventricular complexes are now Present Minimal criteria for Inferior infarct are now Present Nonspecific T wave abnormality now evident in Inferior leads Confirmed by Matthias Regan ([id number]) on 02/13/2022 1:11:27 PM Referred By: REFERRED SELF Confirmed By:Matthias Regan
[2022-02-13] MEDS ORDERED: AMOXICILLIN/CLAVULANATE 875 MG TAB PO ONE (16:00)
[2022-02-13] MEDS ORDERED: WARFARIN SOD 1 MG TAB PO SCH (16:00)
--- NOTE | 2022-02-13 16:19 | Discharge Summary ---
Date of Service February 13, 2022 Admission HPI Per Admitting Provider Yohannes Nolan is a 86-year-old male with a past medical history of CAD with history of CABG, past tobacco abuse, dementia, COPD with emphysema, depression, chronic hypoxic respiratory failure, diastolic heart failure, hypertension who presents to the emergency department with left-sided chest pain and worsening shortness of breath. He is a chronic baseline oxygen requirement of 2 L, feels his breathing has worsened in the last 2 days and is now associated with left- sided chest pain. On ER evaluation he has a leukocytosis to 16 with neutrophilic predominance, hemoglobin 13.3, INR is 1.8, high-sensitivity troponin is 12.6, bio fire is negative, EKG shows sinus bradycardia to a rate of [address] segment abnormalities >1mm, and no T wave inversions. He is on 2 L nasal cannula satting at 94%. CAT scan of the chest shows bibasilar but predominantly left lower lobe opacities consistent with pneumonia, with concern for aspiration. New 11 mm irregular density appreciated recommended for 6-month follow-up, additional 8 mm nodule enlarged from prior size of 5 mm appreciated requiring 6- month follow-up. Other stable pulmonary nodules unchanged. Sodium is normal, potassium is normal, creatinine is normal baseline and admitting creatinine is 1.13; age-adjusted clearance approximately 40. Magnesium is normal. 8:30-9pm last night developed shortness of breath and some L sided chest pain worse when laying in certain positions. Pain was worse this AM, hurt when he coughs, and worse when trying to get dressed. No fevers, chills, or sweats. Otherwise normal 2 days. No diarrhea or constipation. NO abdominal pain. No change in wheezing. Coughs up clear phlegm intermittently, no recent change. [facility]ses [facility]. used rescue inhaler at home, not sure if it helped. Did not try nebulizer. Chest pain has completely resolved. 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 Never needed plaavix. Medical History: Reviewed Medications: Reviewed Surgical History: Reviewed Allergies: Reviewed Social History: No current tobacco use. Former smoker. EtoH few 6 packs per week, usually 2-3 per day. Has gone 1-2 days without withdrawl sx. Last drink >2 days ago. Code Status: Full Code ASV/BiPAP at home Principal Diagnosis Pneumonia - possible aspiration COPD exacerbation Discharge Exam Constitutional WD/WN, vitals as above + frail appearing; no acute distress Respiratory normal respiratory effort Auscultation: + crackles (bibasal); breath sounds present, no diminished lung sounds, no rales, no rhonchi and no wheezes Cardiovascular Rate/Rhythm: regular rhythm and + bradycardic Heart Sounds: no murmur Extremities: normal capillary refill; no calf tenderness and no pedal edema Gastrointestinal (Abdomen) normal bowel sounds, soft, nontender, no hepatosplenomegaly Neurologic moves all extremities, awake and + confused Psychiatric Orientation: alert and oriented to person; + not oriented to place and + not oriented to time Discharge Data Allergies Allergy/AdvReac Type Severity Reaction Status Date / Time Iodinated Contrast Media Allergy Unknown Verified 12/02/21 12:17 Consultations 02/10/22 17:00 ED Decision to Admit Stat Ordered Studies 02/10/22 15:26 CT chest diagnostic wo con Stat IMPRESSION: 1. Small patchy bibasilar airspace opacities most pronounced within the left lower lobe. This favors a pneumonia and could be due to aspiration given the partial opacification of the lower lobe bronchi. 2. Trace left pleural effusion. 3. Moderate emphysema. 4. There is an 11 mm focal irregular density within the left lower lobe as described above which is new from the prior study. This favors a small focus of inflammatory/infectious change. However, 6 month follow-up recommended to ensure resolution/stability. 5. There is an 8 mm nodule within the base of the left lower lobe which may correspond to the 5 mm nodule seen on the prior study. This also requires six- month follow-up to ensure stability. 6. Additional stable subcentimeter pulmonary nodules as described above. Hospital Course (1) Pneumonia: Yohannes Nolan is an 86 year old male admitted to [facility] from February 10 - 2021 due to chest pain and shortness of breath. He was diagnosed with COPD exacerbation and pneumonia. This was treated with IV solu- medrol, Unsyan and doxycycline during his inpatient stay. He will continue on 40mg prednisone for a further 2 days and finish the course of antibiotics with Augmentin and doxycycline for a further 4 days. Due to concerns for aspiration he was evaluated by speech and language therapy and after FEES evaluation recommended a moist, easy to chew diet with no straws (please see complete separate discharge instructions). Physical and occupational therapy recommended outpatient home health to help with mobility and using his cane but he is mostly back to his baseline on discharge. 2 step on discharge showed he required no oxygen at rest but using 2LPM O2 on exertion. He was advised to hold azithromycin while on doxycycline but can restart once the doxycycline prescription has finished. His INR is elevated (3.5) on discharge secondary to doxycycline. This was discussed with the anticoagulation clinic and recommended holding warfarin for today (although he had already had 1mg on day of discharge) and they will call tomorrow for ongoing advice. Radiologist recommended [address] to check for resolution of nodule as above however given his overall health and advanced age will defer this to his PCP as unlikely this would be acted upon even if concern was for a malignancy. 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: (7) Dementia: (8) Hypertension: (9) Coronary artery disease: Total Time Total Time Spent Total Time Spent (In Minutes): 45 Discharge Plan Discharge Items Patient Disposition: Home - Home Health Services Reason For Visit: PNA, AOC, COPD, CHEST PAIN R/O Discharge Diagnosis: Pneumonia COPD exacerbation Condition on Discharge: Fair Activity: Per Instructions section Non-emergency contact: Primary Care Provider Call non-emergency contact if: you have any medication questions and your symptoms worsen Follow-up/Referrals: Derrick Charles MD [Primary Care Provider] - Diet: Heart Healthy Diet Texture: Easy to Chew Addtl Attending Provider Instructions: You were admitted to [facility] from February 10 - 2021 due to chest pain and shortness of breath. You were diagnosed with COPD exacerbation and pneumonia. This was treated with steroids and antibiotics during your inpatient stay. Please continue a further two days of steroids and 4 days of antibiotics as prescribed. You were evaluated by speech and language therapy and recommended a moist easy to chew diet with no straws (please see complete separate discharge instructions). Physical and occupational therapy recommended outpatient home health to help with mobility and using your cane. You were evaluate to respiratory therapy and recommended no oxygen at rest but using 2LPM O2 on exertion. Please hold the azithromycin while on doxycycline but can continue back on the doxycycline has finished. You INR is elevated (3.5) on discharge secondary to doxycycline. This was discussed with the anticoagulation clinic and recommended holding warfarin for today and they will call you tomorrow for ongoing advice. Pending Studies at Discharge: No Stand-Alone Forms: [facility], Smoking Cessation Medications and DC Order Prescriptions: New doxycycline hyclate 100 mg tablet 100 mg PO BID 4 Days Qty: 8 0RF amoxicillin-pot clavulanate 875-125 mg tablet 1 tab PO BID 4 Days Qty: 8 0RF prednisone 20 mg tablet 40 mg PO DAILY 2 Days Qty: 4 0RF Continued cholecalciferol (vitamin D3) 2,000 unit capsule 2,000 units PO HS polyethylene glycol 3350 [Miralax] 17 gram/dose powder 17 gm PO HS docusate sodium [Colace] 100 mg capsule 100 mg PO PM PRN (Reason: Constipation) multivitamin Tablet 1 tab PO HS amlodipine [Norvasc] 10 mg tablet 10 mg PO HS Qty: 90 3RF buspirone 10 mg tablet 10 mg PO HS Rx Instructions: ordered 5-10 mg orally every 6 hours as needed for anxiety but pt takes routinely at night 10 mg ipratropium-albuterol 0.5 mg-3 mg(2.5 mg base)/3 mL solution for nebulization 3 ml INH DAILY PRN (Reason: shortness of breath) Qty: 180 3RF albuterol sulfate 90 mcg/actuation HFA aerosol inhaler 2 puff inhalation Q6H PRN (Reason: Shortness Of Breath Or Wheezing) Qty: 18 3RF azithromycin 250 mg tablet 250 mg PO 3XWK Rx Instructions: 250 mg PO; 1 tab PO Sunday, Sunday and Sunday. takes at night metoprolol succinate 200 mg tablet extended release 24 hr 200 mg PO HS Rx Instructions: TAKE ONE TABLET BY MOUTH ONCE DAILY warfarin 3 mg tablet 3 mg PO HS Rx Instructions: 3 mg daily-- Per [facility] PO use as directed; sertraline 50 mg tablet 50 mg PO HS Rx Instructions: TAKE ONE TABLET BY MOUTH ONCE DAILY ascorbic acid (vitamin C) [Vitamin C] 500 mg Tablet 500 mg PO HS Trelegy Ellipta 100-62.5-25 mcg blister with device 1 inh INH HS rivastigmine [Exelon Patch] 4.6 mg/24 hour patch 24 hour 1 patch transdermal HS Rx Instructions: Apply 1 patch daily. Discharge Orders: Discharge Order (Routine); Ordered 02/13/22 Ordered By: [place] Herrera Admission Data Admit Date/Time: 02/10/22 17:11 Attending Provider: [place] Herrera Admit Provider: Derrick Irby Primary Care Provider: Derrick Charles Other Providers: Derrick Irby ; [place],[facility] Other Interventions: Discharge Summary Assessment (RN) Last Done: 02/13/22 15:23 Coding Level of Care Code D/C DAY MANAGEMENT >30 MINS Diagnoses Pneumonia J18.9 COPD with emphysema J43.9 Chronic respiratory failure with hypoxia J96.11 BPH loc w urin obs/LUTS N40.1 Diastolic heart failure I50.30 Depression due to physical illness F06.31 Dementia F03.90 Hypertension I10 Coronary artery disease I25.10 Home Health Attestation I certify that this patient is under my care and that I, or a physicians water quality assistant working with me, had a face to-face encounter that meets the home health [id number] encounter requirements with this patient. The encounter with the patient was in whole, or in part, for the following medical condition, which is the primary reason for home health care (list medical condition): I certify that, based on my findings, the following services are medically necessary home health services: My clinical findings support the need for the above services because: Home Safety Assessment Inhalers Oxygen Safety and Management PT Assessment for Endurance / Balance / Strength PT Eval for Safety and Mobility PT Gait and Balance Training, Strengthening and Safety Skilled Nsg Assess Pt Illness, Disease and Sx Monitoring Teach on Disease Management and Interventions Further, I certify that my clinical findings support that this patient is homebound (i.e. absences from home require considerable and taxing effort and are for medical reasons or [employer] services or infrequently or of short duration when for other reasons) because: Poor Endurance; SOB Minimal Exertion Transportation Assistance/Unable to Leave Home Unassisted Certification for Home Health Services: Based on the above findings, I certify that this patient is confined to the home and needs intermittent custodial care, physical therapy and/or speech therapy or continues to need occupational therapy. The patient is under my care, and I have initiated the establishment of the plan of care. This patient will be followed by a physician who will periodically review the plan of care.
== END 2022-02-13 17:00 | disposition home health service (06) | DRG 177 ==
LOC: ED 12:38 → EDINP 17:11 → SUATTDRO 17:11 → 2S 02-11 02:52